=== PATIENT | male | born 1960 | race Caucasian/White ===

== ENCOUNTER 2016-07-20 20:08 | Inpatient (IN) | payer OTHER ==
[~2016-07-20] VITALS: Ht 182.9 cm; Wt 116.0 kg
[~2016-07-20 20:08] MED LIST: CYCL1PAK PO; ECOT81TA2 PO; LORA1TAB PO; MECL25CH PO; PRAV40 PO
[2016-07-20 20:16] VITALS: BP 136/90; PULSE 66; RESP 18; TEMP 98.1; O2SAT 96
--- NOTE | 2016-07-20 20:24 | PD ---
HPI Chief Complaint: Respiratory Symptoms Time Seen by Provider: 20:19 Travel History International Travel<30 days: No Contact w/Intl Traveler<30days: No Traveled to known affect area: No History of Present Illness HPI The patient's 55 years old. He arrives by the fire department service. He went to the fire Department due to cough and shortness of breath. It started about 2 hours prior to ER arrival. He had been using [id number] medications for URI symptoms until about 24 hours ago. Throughout the course of today he had a feeling quite well he developed a cough and shortness of breath. Fire department reports O2 sat in the low 90s which improved to high 90s w NC. Patient denies chest pain. He reports that on occasion he becomes diaphoretic and is not sure if times diaphoresis is related to his symptoms. PFSH Past Medical History Arthritis: Yes Asthma: Yes Blood Disorders: No Bipolar Disorder: Yes Anxiety: Yes Depression: No Heart Rhythm Problems: Yes (bradycardia) Cancer: No Cardiac Catheterization: No Cardiovascular Problems: Yes High Cholesterol: No Chemotherapy: No Chest Pain: Yes Congestive Heart Failure: No COPD: No Cerebrovascular Accident: Yes Diabetes: No Diminished Hearing: No Endocrine: No Gastrointestinal Disorders: Yes (REFLUX) GERD: Yes Genitourinary: No Headaches: Yes Hiatal Hernia: No Immune Disorder: No Insomnia: Yes Musculoskeletal: Yes (CHRONIC BODY ACHES) Neurologic: Yes (2 STROKES) Psychiatric: Yes (PTSD) Reproductive: No Respiratory: Yes Migraines: Yes Radiation Therapy: No Seizures: Yes (2013) Shingles: Yes Sleep Apnea: No Ulcer: No Past Surgical History Abdominal Surgery: No Cardiac Surgery: No Coronary Artery Bypass Graft: No Ear Surgery: No Endocrine Surgery: No Eye Surgery: No Genitourinary Surgery: No Gynecologic Surgery: No Neurologic Surgery: Yes Oral Surgery: No Thoracic Surgery: No Other Surgery: Yes (TUMOR IN HEAD, RIGHT SIDE) Social History Alcohol Use: No (quit 4 years ago) Tobacco Use: No (quit 4 years ago) Substance Use: No Allergies-Medications (Allergen,Severity, Reaction): Coded Allergies: Dairy (Verified Allergy, Severe, Diarrhea, 07/20/16) Ziprasidone (Verified Allergy, Severe, Swelling, 07/20/16) Reported Meds & Prescriptions Reported Meds & Active Scripts Active Reported Pravastatin 40 Mg Tab 40 Mg PO DAILY Omeprazole 10 Mg Cap 10 Mg PO DAILY Metformin (Metformin HCl) 500 Mg Tab 500 Mg PO BID With a meal Flexeril (Cyclobenzaprine HCl) 5 Mg Tab 5 Mg PO HS Lorazepam 1 Mg Tab 1 Mg PO TID PRN Review of Systems Except as stated in HPI: all other systems reviewed are Neg General / Constitutional: No: Fever, Chills Cardiovascular: Positive: Diaphoresis, No: Chest Pain or Discomfort Respiratory: Positive: Cough, Shortness of Breath Physical Exam Narrative GENERAL: 55-year-old male pleasant well-nourished well-developed speaks in short phrases SKIN: Focused skin assessment warm/dry. HEAD: Atraumatic. Normocephalic. EYES: Pupils equal and round. No scleral icterus. No injection or drainage. ENT: No nasal bleeding or discharge. Mucous membranes pink and moist. NECK: Trachea midline. No JVD. CARDIOVASCULAR: Minimal tachycardia with a rate of about 100. Regular. RESPIRATORY: Frequent cough. Wheezing present bilaterally. No accessory muscle use. GASTROINTESTINAL: Abdomen soft, non-tender, nondistended. Hepatic and splenic margins not palpable. MUSCULOSKELETAL: No obvious deformities. No clubbing. No cyanosis. No edema. NEUROLOGICAL: Awake and alert. No obvious cranial nerve deficits. Motor grossly within normal limits. Normal speech. PSYCHIATRIC: Appropriate mood and affect; insight and judgment normal. Data Data Last Documented VS Vital Signs Date Time Temp Pulse Resp B/P Pulse Ox O2 Delivery O2 Flow Rate FiO2 07/20/16 20:26 98 Nasal Cannula 2 07/20/16 20:26 18 07/20/16 20:20 67 07/20/16 20:16 98.1 136/90 Vital signs reviewed Orders Complete Blood Count With Diff (07/20/16 20:22) Basic Metabolic Panel (Bmp) (07/20/16 20:22) B-Type Natriuretic Peptide (07/20/16 20:22) Ckmb (Isoenzyme) Profile (07/20/16 20:22) Troponin I (07/20/16 20:22) Influenzae A/B Antigen (07/20/16 20:22) Blood Culture (07/20/16 20:22) Iv Access Insert/Monitor (07/20/16 20:22) Electrocardiogram (07/20/16 20:22) Ecg Monitoring (07/20/16 20:22) Oximetry (07/20/16 20:22) Oxygen Administration (07/20/16 20:22) Chest, Single Ap (07/20/16 20:22) Sodium Chloride 0.9% Flush (Ns Flush) (07/20/16 20:30) Methylprednisolone So Succ Inj (Solumedr (07/20/16 20:30) Albuterol-Ipratropium Neb (Duoneb Neb) (07/20/16 20:30) CKMB (07/20/16 20:18) CKMB% (07/20/16 20:18) Ct Pulmonary Angiogram (07/20/16 21:47) Aspirin (Aspirin) (07/20/16 22:00) Morphine Inj (Morphine Inj) (07/20/16 22:00) Nitroglycerin 2% Oint (Nitroglycerin 2% (07/20/16 22:00) Albuterol Hfa Inh (Proair Hfa Inh) (07/20/16 22:15) Iohexol 350 Inj (Omnipaque 350 Inj) (07/20/16 22:28) Heparin Infusion ARTIE.Q1H (07/20/16 22:49) Heparin Inj (Heparin Inj) (07/20/16 23:00) Heparin Inj (Heparin Inj) (07/21/16 05:00) Heparin Inj (Heparin Inj) (07/21/16 05:00) Heparin-D5w Inj (Heparin-D5w Inj) (07/20/16 23:00) Act Partial Throm Time (Ptt) (07/20/16 22:49) Prothrombin Time / Inr (Pt) (07/20/16 22:49) Cbc No Diff, Includes Plts (07/23/16 06:00) Act Partial Throm Time (Ptt) (07/21/16 05:49) Occult Blood (Hemoccult) Stool (07/20/16 22:49) Admit Order (Ed Use Only) (07/20/16 23:08) Labs Laboratory Tests Test 07/20/16 07/20/16 20:18 23:05 White Blood Count 5.4 TH/MM3 Red Blood Count 4.86 MIL/MM3 Hemoglobin 16.3 GM/DL Hematocrit 45.5 % Mean Corpuscular Volume 93.5 FL Mean Corpuscular Hemoglobin 33.4 PG Mean Corpuscular Hemoglobin 35.8 % Concent Red Cell Distribution Width 12.9 % Platelet Count 109 TH/MM3 Mean Platelet Volume 9.4 FL Neutrophils (%) (Auto) 50.3 % Lymphocytes (%) (Auto) 35.3 % Monocytes (%) (Auto) 8.3 % Eosinophils (%) (Auto) 5.2 % Basophils (%) (Auto) 0.9 % Neutrophils # (Auto) 2.7 TH/MM3 Lymphocytes # (Auto) 1.9 TH/MM3 Monocytes # (Auto) 0.4 TH/MM3 Eosinophils # (Auto) 0.3 TH/MM3 Basophils # (Auto) 0.0 TH/MM3 CBC Comment DIFF FINAL Differential Comment Sodium Level 139 MEQ/L Potassium Level 4.1 MEQ/L Chloride Level 103 MEQ/L Carbon Dioxide Level 25.7 MEQ/L Anion Gap 10 MEQ/L Blood Urea Nitrogen 14 MG/DL Creatinine 1.33 MG/DL Estimat Glomerular Filtration 56 ML/MIN Rate Random Glucose 107 MG/DL Calcium Level 8.9 MG/DL Total Creatine Kinase 359 U/L Creatine Kinase MB 3.2 NG/ML Creatine Kinase MB % 0.9 % Troponin I 0.20 NG/ML B-Type Natriuretic Peptide 65 PG/ML Prothrombin Time 12.6 SEC Prothromb Time International 1.1 RATIO Ratio Activated Partial 26.1 SEC Thromboplast Time MDM Medical Decision Making Medical Screen Exam Complete: Yes Emergency Medical Condition: Yes Medical Record Reviewed: Yes Differential Diagnosis Pneumonia, pulmonary embolism, acute coronary syndrome, anemia, electrolyte imbalance Narrative Course EKG shows a sinus rhythm with a rate of 66 no ischemic injury pattern present CBC & BMP Diagram 07/20/16 20:18 Troponin 0.2 BNP 65 Last [address] Angiography 07/20/162146 Signed Impressions: Service Date/Time: Wednesday, July 20, 2016 22:17 - CONCLUSION: Bilateral filling defects in the upper lobe segmental arteries bilaterally. No central vessel embolism or lower lobe filling defects. Tony Tripp MD Chest X-Ray 07/20/162021 Signed Impressions: Service Date/Time: Wednesday, July 20, 2016 21:01 - CONCLUSION: The lungs are clear. Tony Tripp MD The patient has bilateral PEs. He is hemodynamically stable. Heparin started. Case discussed with Dr. More. Patient will go to the CICU. Critical Care Narrative Aggregate critical care time was 35 minutes. Time to perform other separately billable procedures was not included in the critical care time. My time did not include minutes spent treating any other patients simultaneously or on activities that did not directly contribute to the patient's treatment. The services I provided to this patient were to treat and/or prevent clinically significant deterioration that could result in: Cardiopulmonary arrest, hypoxia I provided critical care services requiring my management, as noted below: Chart data review, documentation time, medication orders and management, vital sign assessments/reviewing monitor data, ordering and reviewing lab tests, ordering and interpreting/reviewing x-rays and diagnostic studies, care of the patient and discussion of the patient with the admitting physicians. Diagnosis Primary Impression: Pulmonary emboli Qualified Code: I26.99 - Other acute pulmonary embolism without acute cor pulmonale Admitting Information Admitting Physician Requests: Noah Erwin MD Jul 20, 2016 20:24
[2016-07-20] MEDS ORDERED: OMEP10CA PO (20:25)
[2016-07-20] MEDS ORDERED: CYCL5TAB PO (20:25)
[2016-07-20] MEDS ORDERED: PRAV40TA2 PO (20:25)
[2016-07-20] MEDS ORDERED: LORA1TAB12 PO (20:25)
[2016-07-20] MEDS ORDERED: METF500T PO (20:25)
[2016-07-20 20:26] VITALS: RESP 18; O2SAT 98
[2016-07-20] MEDS ORDERED: methylPREDNISolone SOD SUCC 125 MG/2 ML VIAL IVP ONE (20:30)
[2016-07-20] MEDS ORDERED: SODIUM CHLORIDE 0.9% FLUSH 10 ML FLUSH IVF PRN (20:30)
[2016-07-20] MEDS: RESP: ALBUTEROL 2.5 MG/IPRATROPIUM 0.5 MG NEB (SCH) INH (20:34)
[2016-07-20 20:52] LABS: AUTOMATED NEUTROPHIL # 2.7 TH/MM3 (1.8-7.7); BASOPHIL % 0.9 % (0.0-2.0); EOSINOPHIL # 0.3 TH/MM3 (0-0.4); EOSINOPHIL % 5.2 % (0.0-4.0); HEMATOCRIT 45.5 % (39.0-51.0); HEMO FLAGS DIFF FINAL; LYMPH % 35.3 % (9.0-44.0); LYMPHOCYTE # 1.9 TH/MM3 (1.0-4.8); MEAN CELL VOLUME 93.5 FL (80.0-100.0); MEAN CORPUSCULAR HEMOGLOBIN 33.4 PG (27.0-34.0); MEAN CORPUSCULAR HGB CONC 35.8 % (32.0-36.0); MONO % 8.3 % (0.0-8.0); NEUT % 50.3 % (16.0-70.0); PLATELET COUNT 109 TH/MM3 (150-450); RED BLOOD COUNT 4.86 MIL/MM3 (4.50-5.90); RED CELL DISTRIBUTION WIDTH 12.9 % (11.6-17.2); WHITE BLOOD COUNT 5.4 TH/MM3 (4.0-11.0)
--- NOTE | 2016-07-20 21:14 | RADRPT ---
EXAM DATE/TIME: 07/20/2016 21:01 [facility] COMPARISON: CHEST SINGLE AP, June 22, 2012, 13:31. CHEST SINGLE AP, October 05, 2014, 13:28. INDICATIONS : Short of breath. MEDICAL HISTORY : None. SURGICAL HISTORY : None. ENCOUNTER: Initial ACUITY: 1 day PAIN SCORE: 6/10 LOCATION: Bilateral chest FINDINGS: A single view of the chest demonstrates the lungs to be symmetrically aerated without evidence of mas s, infiltrate or effusion. Stable 5 mm calcified granuloma upper lateral right lung and calcified ri ght hilar lymph node, unchanged from 2013. The cardiomediastinal contours are unremarkable. Osseous structures are intact. CONCLUSION: The lungs are clear. Tony Tripp MD on July 20, 2016 at 21:12 Board Certified Radiologist. This report was verified electronically.
[2016-07-20 21:15] LABS: BICARBONATE 25.7 MEQ/L (21.0-32.0)
[2016-07-20 21:17] LABS: POTASSIUM 4.1 MEQ/L (3.5-5.1)
[2016-07-20 21:30] LABS: CKMB 3.2 NG/ML (0.5-3.6)
[2016-07-20] MEDS ORDERED: NITROGLYCERIN 2% OINT 1 GM PACKET TOP ONE (22:00)
[2016-07-20] MEDS ORDERED: ASPIRIN 325 MG TAB PO ONE (22:00)
[2016-07-20] MEDS ORDERED: MORPHINE SULFATE 4 MG/ML INJ IV PUSH ONE (22:00)
[2016-07-20] MEDS ORDERED: ALBUTEROL SULFATE 90 MCG/ACT HFA 8 GM INHALER INH ONE (22:15)
[2016-07-20] MEDS ORDERED: IOHEXOL 350 MG/ML 10 ML VIAL (for RAD DIAG) IV ONE (22:28)
--- NOTE | 2016-07-20 22:46 | RADRPT ---
EXAM DATE/TIME: 07/20/2016 22:17 [facility] COMPARISON: No previous studies available for comparison. INDICATIONS : Shortness of breath with cough. IV CONTRAST: 80 cc Omnipaque 350 (iohexol) IV RADIATION DOSE: 25.19 CTDIvol (mGy) MEDICAL HISTORY : Diabetes mellitus type 2. Asthma. SURGICAL HISTORY : Cardiac catherization. ENCOUNTER: Initial ACUITY: 1 day PAIN SCALE: 0/10 LOCATION: chest TECHNIQUE: Volumetric scanning of the chest was performed using a pulmonary embolism protocol MIP images were re constructed. Using automated exposure control and adjustment of the mA and/or kV according to patien t size, radiation dose was kept as low as reasonably achievable to obtain optimal diagnostic quality images. FINDINGS: PULMONARY ARTERIES: There are small filling defects in segmental arteries to the right upper lobe (one artery) and to the left upper lobe (2 arteries). No filling defects seen in the main, left, or right pulmonary artery no filling defects seen in the lower lobe or right middle lobe vessels. LUNGS: There is no consolidation or pneumothorax . No concerning pulmonary nodule is visualized. PLEURAE: There is no pleural thickening or pleural effusion. MEDIASTINUM: There is good visualization of the great vessels of the middle mediastinum. No evidence of mediastin al or hilar adenopathy/mass. CONCLUSION: Bilateral filling defects in the upper lobe segmental arteries bilaterally. No central vessel emboli sm or lower lobe filling defects. Tony Tripp MD on July 20, 2016 at 22:41 Board Certified Radiologist. This report was verified electronically.
[2016-07-20 23:00] VITALS: BP 132/81; PULSE 76; RESP 18; O2SAT 97
[2016-07-20] MEDS ORDERED: HEPARIN SODIUM - IV 10,000 UNITS/10 ML VIAL IV ONE (23:00)
[2016-07-20] MEDS ORDERED: HEPARIN-D5W INJ 250 ML IV SCH (23:00)
[2016-07-20 23:24] VITALS: BP 132/81; PULSE 87; RESP 18; O2SAT 96
[2016-07-20] MEDS ORDERED: LORazepam 1 MG TAB PO ONE (23:30)
[2016-07-20 23:35] LABS: APTT (PATIENT) 26.1 SEC (24.3-30.1); INTERNATIONAL NORMALIZED RATIO 1.1 RATIO; PROTHROMBIN TIME - PATIENT 12.6 SEC (9.8-11.6)
[2016-07-20] MEDS ORDERED: SODIUM CHLORIDE 0.9% FLUSH 10 ML FLUSH IV FLUSH PRN (23:45)
[2016-07-21] VITALS (16 sets, daily range): BP systolic 123–153; BP diastolic 68–94; PULSE 89–98; RESP 16–20; TEMP 98–98.8; O2SAT 93–98
[2016-07-21] MEDS ORDERED: GLUCAGON 1 MG/ML VIAL OTHER PRN
[2016-07-21] MEDS ORDERED: DEXTROSE 50% IN WATER 50 ML VIAL(D50) IV PUSH PRN
--- NOTE | 2016-07-21 | HHI.HP ---
[facility] Admission Diagnosis Bilateral PE Diagnoses: Chief Complaint: Shortness of breath Travel History International Travel<30 Days: No Contact w/Intl Traveler <30 Da: No Traveled to Known Affected Are: No History of Present Illness 55-year-old male with a past medical history significant for hypertension and type 2 diabetes mellitus presents to the emergency department today after becoming short of breath at 6:30 PM. The patient states that he was in his usual state of health, recovering from a cold, when he developed a cough that would not go away. He states that he was having difficulty breathing and went to a nearby fire station to be evaluated. Fire department reported oxygen saturation in the low 90s which improved with nasal cannula. In the emergency department, the patient was found to have bilateral pulmonary embolisms. He also had an EKG that was within normal limits and a troponin of 0.20. He denies any associated symptoms. Review of Systems Denies fever or chills Denies blurry vision, otorrhea, rhinorrhea Denies sore throat, positive cough No chest pain, palpitations, endorses shortness of breath Chronic abdominal pain Denies constipation/diarrhea/nausea/vomiting Denies muscle pain/weakness No rashes Past Family Social History Past Medical History Hypertension Hyperlipidemia Type 2 diabetes mellitus Anxiety Past Surgical History Cardiac catheterization on 02/13 - no stent placement Reported Medications Reported Meds & Active Scripts Active Reported Pravastatin 40 Mg Tab 40 Mg PO DAILY Omeprazole 10 Mg Cap 10 Mg PO DAILY Metformin (Metformin HCl) 500 Mg Tab 500 Mg PO BID With a meal Flexeril (Cyclobenzaprine HCl) 5 Mg Tab 5 Mg PO HS Lorazepam 1 Mg Tab 1 Mg PO TID PRN Allergies: Coded Allergies: Dairy (Verified Allergy, Severe, Diarrhea, 07/20/16) Ziprasidone (Verified Allergy, Severe, Swelling, 07/20/16) Family History Mom with Alzheimer's disease and a CVA, now . Dad of an NE at age 61. 2 brothers with coronary artery disease. Social History 20 pack year history of smoking, quit 5 years ago. Denies alcohol/illicit drugs. Physical Exam Vital Signs Vital Signs Date Time Temp Pulse Resp B/P Pulse Ox O2 Delivery O2 Flow Rate FiO2 07/20/16 23:24 87 18 132/81 96 Nasal Cannula 2 07/20/16 20:26 98 Nasal Cannula 2 07/20/16 20:26 18 98 Nasal Cannula 2 07/20/16 20:20 67 18 98 Nasal Cannula 2 07/20/16 20:16 98.1 66 18 136/90 96 Physical Exam GENERAL: This is a well-nourished, well-developed patient, in no apparent distress. SKIN: No rashes, ecchymoses or lesions. Cool and dry. HEAD: Atraumatic. Normocephalic. No temporal or scalp tenderness. EYES: Pupils equal round and reactive. Extraocular motions intact. No scleral icterus. No injection or drainage. ENT: Nose without bleeding, purulent drainage or septal hematoma. Throat without erythema, tonsillar hypertrophy or exudate. Uvula midline. Airway patent. NECK: Trachea midline. No JVD or lymphadenopathy. Supple, nontender, no meningeal signs. CARDIOVASCULAR: Regular rate and rhythm without murmurs, gallops, or rubs. RESPIRATORY: Clear to auscultation. Breath sounds equal bilaterally. No wheezes , rales, or rhonchi. GASTROINTESTINAL: Abdomen soft, non-tender, nondistended. No hepato-splenomegaly , or palpable masses. No guarding. MUSCULOSKELETAL: Extremities without clubbing, cyanosis, or edema. No joint tenderness, effusion, or edema noted. No calf tenderness. Negative Homans sign bilaterally. NEUROLOGICAL: Awake and alert. Cranial nerves II through XII intact. Motor and sensory grossly within normal limits. Five out of 5 muscle strength in all muscle groups. Normal speech. Laboratory Laboratory Tests Test 07/20/16 07/20/16 20:18 23:05 White Blood Count 5.4 Red Blood Count 4.86 Hemoglobin 16.3 Hematocrit 45.5 Mean Corpuscular Volume 93.5 Mean Corpuscular Hemoglobin 33.4 Mean Corpuscular Hemoglobin 35.8 Concent Red Cell Distribution Width 12.9 Platelet Count 109 Mean Platelet Volume 9.4 Neutrophils (%) (Auto) 50.3 Lymphocytes (%) (Auto) 35.3 Monocytes (%) (Auto) 8.3 Eosinophils (%) (Auto) 5.2 Basophils (%) (Auto) 0.9 Neutrophils # (Auto) 2.7 Lymphocytes # (Auto) 1.9 Monocytes # (Auto) 0.4 Eosinophils # (Auto) 0.3 Basophils # (Auto) 0.0 CBC Comment DIFF FINAL Differential Comment Sodium Level 139 Potassium Level 4.1 Chloride Level 103 Carbon Dioxide Level 25.7 Anion Gap 10 Blood Urea Nitrogen 14 Creatinine 1.33 Estimat Glomerular Filtration 56 Rate Random Glucose 107 Calcium Level 8.9 Total Creatine Kinase 359 Creatine Kinase MB 3.2 Creatine Kinase MB % 0.9 Troponin I 0.20 B-Type Natriuretic Peptide 65 Prothrombin Time 12.6 Prothromb Time International 1.1 Ratio Activated Partial 26.1 Thromboplast Time Date/Time Procedure Status Source Growth 07/20/16 20:30 Aerobic Blood Culture Received Blood Peripheral Pending 07/20/16 20:30 Anaerobic Blood Culture Received Blood Peripheral Pending 07/20/16 20:29 Influenza Types A,B Antigen (LAUREN) - Final Complete Nasal Aspirate NEGATIVE FOR FLU A AND B ANTIGEN.... Result Diagram: 07/20/16201707/20/162017 Imaging Last Impressions CT Angiography 07/20/162146 Signed Impressions: Service Date/Time: Wednesday, July 20, 2016 22:17 - CONCLUSION: Bilateral filling defects in the upper lobe segmental arteries bilaterally. No central vessel embolism or lower lobe filling defects. Tony Tripp MD Chest X-Ray 07/20/162021 Signed Impressions: Service Date/Time: Wednesday, July 20, 2016 21:01 - CONCLUSION: The lungs are clear. Tony Tripp MD Assessment and Plan Problem List: (1) Diabetes ICD Code: E11.9 Status: Chronic (2) HTN (hypertension) ICD Code: I10 Status: Chronic (3) HLD (hyperlipidemia) ICD Code: E78.5 Status: Chronic (4) Pulmonary emboli ICD Code: I26.99 Status: Acute (5) Anxiety ICD Code: F41.1 Status: Chronic Assessment and Plan 55-year-old male presents to the emergency department with bilateral pulmonary emboli after being short of breath. 1. Pulmonary emboli CTA showed bilateral filling deficits in the upper lobe segmental arteries bilaterally. Patient started on heparin ggt in the emergency department. Will transition to Xarelto. 2. Elevated troponin Likely secondary to pulmonary emboli Repeat troponin, patient with previous troponin of 0.17 in September 2014 Patient with previous heart catheterization on 10/12, no stent placement and strong family history of CAD 3. Hypertension Continue home medications 4. Type 2 diabetes mellitus Holding home metformin, low-dose sliding scale insulin 5. Hyperlipidemia Continue home statin 6. FEN Hep-Lock IV Heart healthy diet Anticoagulation as above Physician Certification 2 Midnight Certification Type: Admission for Inpatient Services Order for Inpatient Services The services are ordered in accordance with Medicare regulations or non- Medicare payer requirements, as applicable. In the case of services not specified as inpatient-only, they are appropriately provided as inpatient services in accordance with the 2-midnight benchmark. Estimated LOS (days): 2 2 days is the estimated time the patient will need to remain in the hospital, assuming treatment plan goals are met and no additional complications. Post-Hospital Plan: Home Renetta More MD R3 Jul 21, 2016 00:00
--- NOTE | 2016-07-21 02:02 | RADRPT ---
EXAM DATE/TIME: 07/21/2016 00:47 [facility] COMPARISON: No previous studies available for comparison. INDICATIONS : Pulmonary embolism. MEDICAL HISTORY : Gastroesophageal reflux disease. CVA. Seizures. AL. Syncope. Dyspnea. PTSD. SURGICAL HISTORY : Right sided head surgery. ENCOUNTER: Initial ACUITY: 2 day PAIN SCORE: 1/10 LOCATION: Bilateral legs. TECHNIQUE: Venous ultrasound of the left and right leg was performed from the inguinal ligament to the proximal calf. Real-time, color Doppler and spectral tracing, compression and augmentation techniques were us ed. FINDINGS: RIGHT LEG: There is normal compressibility of the deep venous system from the inguinal region to the proximal ca lf. No echogenic clot is seen in the lumen of the common femoral, femoral, popliteal, and posterior tibial veins. There is a normal response of the venous system to proximal and distal augmentation an d respiration. LEFT LEG: There is normal compressibility of the deep venous system from the inguinal region to the proximal ca lf. No echogenic clot is seen in the lumen of the common femoral, femoral, popliteal, and posterior tibial veins. There is a normal response of the venous system to proximal and distal augmentation an d respiration. CONCLUSION: Normal examination. Tony Williamson Jr., MD on July 21, 2016 at 2:00 Board Certified Radiologist. This report was verified electronically.
[2016-07-21] MEDS ORDERED: ALBUTEROL SULFATE 90 MCG/ACT HFA 18 GM INHALER INH ONE (04:45)
[2016-07-21] MEDS ORDERED: HEPARIN SODIUM - IV 10,000 UNITS/10 ML VIAL IV PRN ×4 (05:00→18:30)
[2016-07-21 05:34] LABS: APTT (PATIENT) 140.5 SEC (24.3-30.1)
[2016-07-21] MEDS: INSULIN ASPART SUPPLEMENTAL SCALE SQ SCH ×4 (07:51→21:29)
--- NOTE | 2016-07-21 08:55 | HHI.PR ---
Subjective Remarks f/u for respiratory distress due to PE patient stated breathing has improved. he stated if he does not move he does not feel SOB. + cough. No other complaints. Objective Vitals Vital Signs Date Time Temp Pulse Resp B/P Pulse Ox O2 Delivery O2 Flow Rate FiO2 07/21/16 07:42 92 18 123/78 94 Room Air 07/21/16 04:56 90 18 127/76 96 Nasal Cannula 2 07/21/16 03:35 89 18 138/83 98 Nasal Cannula 2 07/21/16 01:45 96 18 150/90 97 Nasal Cannula 2 07/21/16 00:09 97 Nasal Cannula 2.00 07/21/16 00:00 90 16 134/94 96 Nasal Cannula 07/20/16 23:24 87 18 132/81 96 Nasal Cannula 2 07/20/16 23:00 76 18 132/81 97 Nasal Cannula 2 07/20/16 20:26 98 Nasal Cannula 2 07/20/16 20:26 18 98 Nasal Cannula 2 07/20/16 20:20 67 18 98 Nasal Cannula 2 07/20/16 20:16 98.1 66 18 136/90 96 I/O 07/20/16 07/20/16 07/20/16 07/21/16 07/21/16 07/21/16 07:00 15:00 23:00 07:00 15:00 23:00 Output Total 1000 ml Balance -1000 ml Output Urine Total 1000 ml # Voids 3 Result Diagram: 07/20/16201707/20/162017 Objective Remarks GENERAL: in NAD CARDIOVASCULAR: Regular rate and rhythm without murmurs, gallops, or rubs. RESPIRATORY: Breath sounds equal bilaterally. No accessory muscle use. GASTROINTESTINAL: Abdomen soft, non-tender, nondistended. MUSCULOSKELETAL: No cyanosis, or edema. BACK: Nontender without obvious deformity. No CVA tenderness. Medications and IVs Current Medications Sodium Chloride (NS Flush) 2 ml UNSCH PRN IVF FLUSH AFTER USING IV ACCESS; Start 07/20/16 at 20:30; Stop 07/20/16 at 23:56; Status DC Methylprednisolone Sodium Succinate (SoluMEDROL INJ) 125 mg ONCE ONCE IVP Last administered on 07/20/16t 20:48; Start 07/20/16 at 20:30; Stop 07/20/16 at 20:31; Status DC Albuterol/ Ipratropium (Duoneb Neb) 1 ampule Q15M INH Last administered on 07/20 20:34; Start 07/20/16 at 20:30; Stop 07/20/16 at 21:01; Status DC Aspirin (Aspirin) 325 mg ONCE ONCE PO Last administered on 07/20/16 22:19; Start 07/20/16 at 22:00; Stop 07/20/16 at 22:01; Status DC Morphine Sulfate (Morphine Inj) 2 mg ONCE ONCE IV PUSH Last administered on 22:19; Start 07/20/16 at 22:00; Stop 07/20/16 at 22:01; Status DC Nitroglycerin (Nitroglycerin 2% Oint) 1 inch ONCE ONCE TOP Last administered on 07/20/16 22:19; Start 07/20/16 at 22:00; Stop 07/20/16 at 22:01; Status DC Albuterol Sulfate (Proair Hfa Inh) 2 puff ONCE ONCE INH ; Start 07/20/16 at 22: 15; Stop 07/20/16 at 22:16; Status Cancel Iohexol (Omnipaque 350 Inj) 80 ml STK-MED ONCE IV Last administered on 22:28; Start 07/20/16 at 22:28; Stop 07/20/16 at 22:29; Status DC Heparin Sodium (Porcine) (Heparin Inj) 9,000 units ONCE ONCE IV Last administered on 07/20/16 23:20; Start 07/20/16 at 23:00; Stop 07/20/16 at 23:01 ; Status DC Heparin Sodium (Porcine) (Heparin Inj) 5,000 units UNSCH PRN IV APTT LESS THAN 25; Start 07/21/16 at 05:00; Stop 07/21/16 at 08:59 Heparin Sodium (Porcine) 2500 units 2,500 units UNSCH PRN IV APTT 25 TO 39; Start 07/21/16 at 05:00; Stop 07/21/16 at 08:59 Heparin Sodium/ Dextrose (Heparin-D5W Inj) 250 ml @ 0 mls/hr TITRATE IV Last administered on 07/20/16 23:21; Start 07/20/16 at 23:00; Stop 07/21/16 at 08:59 Lorazepam (Ativan) 1 mg ONCE ONCE PO Last administered on 07/20/16 23:43; Start 07/20/16 at 23:30; Stop 07/20/16 at 23:31; Status DC Lorazepam (Ativan) 1 mg TID PRN PO ANXIETY; Start 07/20/16 at 23:45 Pravastatin Sodium (Pravachol) 40 mg DAILY PO ; Start 07/21/16 at 09:00 Pantoprazole Sodium (Protonix) 20 mg DAILY PO ; Start 07/21/16 at 09:00 Sodium Chloride (NS Flush) 2 ml UNSCH PRN IV FLUSH FLUSH AFTER USING IV ACCESS ; Start 07/20/16 at 23:45 Sodium Chloride (NS Flush) 2 ml BID IV FLUSH ; Start 07/21/16 at 09:00 Rivaroxaban (Xarelto) 15 mg BID PO ; Start 07/21/16 at 09:00 Insulin Aspart (NovoLOG SUPPLEMENTAL SCALE) 1 ACHS SLIDING SCALE SQ Last administered on 07/21/16 07:51; Start 07/21/16 at 07:00 Dextrose (D50w (Vial) Inj) 25 ml UNSCH PRN IV PUSH HYPOGLYCEMIA-SEE COMMENTS; Start 07/21/16 at 00:00 Glucagon (Glucagon Inj) 1 mg UNSCH PRN OTHER HYPOGLYCEMIA-SEE COMMENTS; Start 07/21/16 at 00:00 Albuterol Sulfate (Ventolin Hfa Inh) 2 puff ONCE ONCE INH Last administered on 07/21/16 04:39; Start 07/21/16 at 04:45; Stop 07/21/16 at 04:46; Status DC A/P Problem List: (1) Diabetes ICD Code: E11.9 Status: Chronic (2) HTN (hypertension) ICD Code: I10 Status: Chronic (3) HLD (hyperlipidemia) ICD Code: E78.5 Status: Chronic (4) Pulmonary emboli ICD Code: I26.99 Status: Acute (5) Anxiety ICD Code: F41.1 Status: Chronic Assessment and Plan 55-year-old male presents to the emergency department with bilateral pulmonary emboli after being short of breath. Acute respiratory failure -due to PE -supplement with Oxygen. -see treatment as below. Pulmonary emboli CTA showed bilateral filling deficits in the upper lobe segmental arteries bilaterally. Patient started on heparin ggt in the emergency department. -most likely provoked due to last hospitalization with decreased mobilization. -continue with heparin gtt since he continues to be hypoxic and consider switching to PO tomorrow if symptoms improved. Elevated troponin Likely secondary to pulmonary emboli Repeat troponin, patient with previous troponin of 0.17 in September 2014 Patient with previous heart catheterization on 10/12, no stent placement and strong family history of CAD -stable. Hypertension Continue home medications Type 2 diabetes mellitus Holding home metformin, low-dose sliding scale insulin Hyperlipidemia Continue home statin DVT prophylaxis -on heparin gtt Discharge Planning Patient continues to require oxygen. Will try to transition to oral tomorrow if respiratory status improves. Problem Qualifiers (1) Pulmonary emboli: Qualified Code: I26.99 - Other acute pulmonary embolism without acute cor pulmonale Natali Kennedy MD Jul 21, 2016 08:55
[2016-07-21] MEDS ORDERED: RIVAROXABAN 15 MG TAB PO SCH (09:00)
[2016-07-21] MEDS: PANTOPRAZOLE SOD 20 MG DELAYED RELEASE TAB PO SCH (09:24)
[2016-07-21] MEDS: PRAVASTATIN SOD 40 MG TAB PO SCH (09:24)
[2016-07-21] MEDS: LORazepam 1 MG TAB PO PRN ×2 (09:24→17:12)
[2016-07-21] MEDS: SODIUM CHLORIDE 0.9% FLUSH 10 ML FLUSH IV FLUSH SCH ×2 (09:24→21:00)
--- NOTE | 2016-07-21 13:32 | EKG ---
Date Performed: 07/20/2016 Time Performed: 20:24:19 PTAGE: 55 years EKG: Sinus rhythm BORDERLINE LEFT AXIS DEVIATION Compared to prior tracing no significant change BORDERLINE ECG PREVIOUS TRACING : 10/05/2014 13.10 DOCTOR: Cain Aguero Interpretating Date/Time 07/21/2016 13:30:03
[2016-07-21] MEDS ORDERED: PILL SPLITTER OTHER PRN (17:30)
[2016-07-21] MEDS: HEPARIN-D5W INJ 250 ML IV SCH (18:30)
[2016-07-21] MEDS ORDERED: CYCLOBENZAPRINE HCL 10 MG TAB PO SCH (21:00)
[2016-07-22] VITALS (11 sets, daily range): BP systolic 78–142; BP diastolic 68–78; PULSE 66–98; RESP 16–17; TEMP 97.8–98.2; O2SAT 95–97
[2016-07-22] MEDS: LORazepam 1 MG TAB PO PRN ×2 (00:21→09:44)
[2016-07-22 00:37] LABS: APTT (PATIENT) 61.1 SEC (24.3-30.1)
[2016-07-22] MEDS: INSULIN ASPART SUPPLEMENTAL SCALE SQ SCH ×2 (05:50→11:00)
[2016-07-22 07:07] LABS: APTT (PATIENT) 77.2 SEC (24.3-30.1)
[2016-07-22] MEDS: PANTOPRAZOLE SOD 20 MG DELAYED RELEASE TAB PO SCH (08:41)
[2016-07-22] MEDS: PRAVASTATIN SOD 40 MG TAB PO SCH (08:41)
[2016-07-22] MEDS: SODIUM CHLORIDE 0.9% FLUSH 10 ML FLUSH IV FLUSH SCH (08:44)
[2016-07-22] MEDS: HEPARIN-D5W INJ 250 ML IV SCH (08:44)
[2016-07-22] MEDS ORDERED: XARE15TA PO ×2 (11:39→11:47)
[2016-07-22] MEDS ORDERED: XARE20TA PO ×2 (11:39→11:47)
--- NOTE | 2016-07-22 11:48 | HHI.DCPOC ---
Discharge Care Plan Diagnosis: (1) Pulmonary emboli Goals to Promote Your Health * To prevent worsening of your condition and complications * To maintain your health at the optimal level Directions to Meet Your Goals Take your medications as prescribed Follow your dietary instruction Follow activity as directed Keep your appointments as scheduled Take your immunizations and boosters as scheduled If your symptoms worsen call your PCP, if no PCP go to Urgent Care Center or Emergency Room Smoking is Dangerous to Your Health. Avoid second hand smoke Call the 24-hour hour crisis hotline for domestic abuse at Natlai Kennedy MD Jul 22, 2016 11:48
--- NOTE | 2016-07-22 11:48 | HHI.DS ---
Discharge Summary Admission Date Jul 20, 2016 at 23:10 Discharge Date: Jul 22, 2016 Admitting Diagnosis Bilateral PE (1) Pulmonary emboli ICD Code: I26.99 Diagnosis: Principal (2) Diabetes ICD Code: E11.9 Diagnosis: Secondary (3) HTN (hypertension) ICD Code: I10 Diagnosis: Secondary (4) HLD (hyperlipidemia) ICD Code: E78.5 Diagnosis: Secondary (5) Anxiety ICD Code: F41.1 Diagnosis: Secondary Procedures none Brief History - From Admission 55-year-old male with a past medical history significant for hypertension and type 2 diabetes mellitus presents to the emergency department today after becoming short of breath at 6:30 PM. The patient states that he was in his usual state of health, recovering from a cold, when he developed a cough that would not go away. He states that he was having difficulty breathing and went to a nearby fire station to be evaluated. Fire department reported oxygen saturation in the low 90s which improved with nasal cannula. In the emergency department, the patient was found to have bilateral pulmonary embolisms. He also had an EKG that was within normal limits and a troponin of 0.20. He denies any associated symptoms. CBC/BMP: 07/20/16201707/20/162017 Significant Findings Laboratory Tests Test 07/20/16 07/20/16 07/21/16 07/21/16 20:18 23:05 02:34 04:50 Platelet Count 109 TH/MM3 (150-450) Monocytes (%) (Auto) 8.3 % (0.0-8.0) Eosinophils (%) (Auto) 5.2 % (0.0-4.0) Creatinine 1.33 MG/DL (0.60-1.30) Estimat Glomerular Filtration 56 ML/MIN (>89) Rate Random Glucose 107 MG/DL (74-106) Total Creatine Kinase 359 U/L (39-308) Troponin I 0.20 NG/ML 0.21 NG/ML (0.02-0.05) (0.02-0.05) Prothrombin Time 12.6 SEC (9.8-11.6) Activated Partial 140.5 SEC Thromboplast Time (24.3-30.1) Test 07/21/16 07/21/16 07/22/16 07/22/16 07:40 18:20 00:12 05:51 Activated Partial 39.0 SEC 62.0 SEC 61.1 SEC 77.2 SEC Thromboplast Time (24.3-30.1) (24.3-30.1) (24.3-30.1) (24.3-30.1) Imaging Last Impressions Lower Extremity Ultrasound 07/21/16 0000 Signed Impressions: Service Date/Time: Thursday, July 21, 2016 00:47 - CONCLUSION: Normal examination. Tony Williamson Jr., MD CT Angiography 07/20/162146 Signed Impressions: Service Date/Time: Wednesday, July 20, 2016 22:17 - CONCLUSION: Bilateral filling defects in the upper lobe segmental arteries bilaterally. No central vessel embolism or lower lobe filling defects. Tony Tripp MD Chest X-Ray 07/20/162021 Signed Impressions: Service Date/Time: Wednesday, July 20, 2016 21:01 - CONCLUSION: The lungs are clear. Tony Tripp MD PE at Discharge GENERAL: in NAD CARDIOVASCULAR: Regular rate and rhythm without murmurs, gallops, or rubs. RESPIRATORY: Breath sounds equal bilaterally. No accessory muscle use. GASTROINTESTINAL: Abdomen soft, non-tender, nondistended. MUSCULOSKELETAL: No cyanosis, or edema. BACK: Nontender without obvious deformity. No CVA tenderness. Pt update on day of discharge f/u for PE patient stated he feels a lot better. He stated he just has a mild cough and sometimes pain with the cough but otherwise doing well. Denied any SOB, palpitations or chest pain. patient stated can get his medication today if he goes to [place] before 4 pm. Hospital Course 55-year-old male presents to the emergency department with bilateral pulmonary emboli after being short of breath. Acute respiratory failure -due to PE found on CT scan. -supplement with Oxygen and was able to wean off. -see treatment as below. Pulmonary emboli CTA showed bilateral filling deficits in the upper lobe segmental arteries bilaterally. Patient started on heparin ggt in the emergency department and since today he had drastic improvement and was weaned off of oxygen quickly d./ c heparin gtt and started on xarelto. -most likely provoked due to last hospitalization with decreased mobilization. Elevated troponin Likely secondary to pulmonary emboli Repeat troponin, patient with previous troponin of 0.17 in September 2014 Patient with previous heart catheterization on 10/12, no stent placement and strong family history of CAD -stable. Hypertension Continue home medications Type 2 diabetes mellitus -restart. Hyperlipidemia Continue home statin Pt Condition on Discharge: Good Discharge Disposition: Discharge Home Discharge Time: <= 30 minutes Discharge Instructions DIET: Follow Instructions for: Heart Healthy Diet Activities you can perform: Regular-No Restrictions Follow up Referrals: PCP Follow-up - 1 Week New Medications: Rivaroxaban (Xarelto) 15 Mg Tab 15 MG PO Q12HR take 15 mg twice a day or 21 days then transition to 20 mg once a day Blood Clot Prevention Days 21 Ref 0 TAB Rivaroxaban (Xarelto) 20 Mg Tab 20 MG PO DAILY start 20 mg once a day after completing the 15 mg tablet once a day. Blood Clot Prevention #7 Ref 0 TAB Continued Medications: Cyclobenzaprine (Flexeril) 5 Mg Tab 5 MG PO HS Muscle Spasm #90 Ref 0 TAB Lorazepam (Lorazepam) 1 Mg Tab 1 MG PO TID PRN ANXIETY Ref 0 TAB Metformin (Metformin) 500 Mg Tab 500 MG PO BID With a meal Blood Sugar Management #30 Ref 0 TAB Omeprazole (Omeprazole) 10 Mg Cap 10 MG PO DAILY #30 Ref 0 CAP Pravastatin (Pravastatin) 40 Mg Tab 40 MG PO DAILY Cholesterol Management #30 Ref 0 TAB Natali Kennedy MD Jul 22, 2016 11:48
[2016-07-22] MEDS ORDERED: RIVAROXABAN 15 MG TAB PO SCH (12:00)
== END 2016-07-22 13:03 | disposition home or self-care (01) | DRG 175 ==
LOC: NEPC 20:08 → NEDA 23:10 → NEDH 07-21 06:54 → HCIS 07-21 14:35
PROVIDERS: ADMIT Family Medicine; ATTEND Family Medicine
DX: I26.99 Other pulmonary embolism without acute cor pulmonale (principal); J96.01 Acute respiratory failure with hypoxia; B02.9 Zoster without complications; J45.909 Unspecified asthma, uncomplicated; F41.1 Generalized anxiety disorder; G43.909 Migraine, unspecified, not intractable, without status migrainosus; K21.9 Gastro-esophageal reflux disease without esophagitis; G47.00 Insomnia, unspecified; E11.9 Type 2 diabetes mellitus without complications; E78.5 Hyperlipidemia, unspecified; I10 Essential (primary) hypertension; R74.8 Abnormal levels of other serum enzymes; Z86.73 Personal history of transient ischemic attack (TIA), and cerebral infarction without residual deficits; Z87.891 Personal history of nicotine dependence
CPT/HCPCS: 71010; 71275; 80048; 82550; 82552; 82948; 83880; 84484; 85025; 85610; 85730; 87040; 87804; 93005; 93970; 94640; 94664; 96374; 96375; J1644; J1815; J2270; J2930; Q9967

== ENCOUNTER 2016-09-01 13:17 | Emergency (ER) | payer OTHER ==
[~2016-09-01] VITALS: Ht 185.4 cm; Wt 113.6 kg
[~2016-09-01 13:17] MED LIST changes: -CYCL1PAK PO; +CYCL5TAB PO; -ECOT81TA2 PO; -LORA1TAB PO; +LORA1TAB12 PO; -MECL25CH PO; +METF500T PO; +OMEP10CA PO; -PRAV40 PO; +PRAV40TA2 PO; +XARE15TA PO; +XARE20TA PO
[2016-09-01 13:22] VITALS: BP 139/89; PULSE 54; RESP 16; TEMP 98; O2SAT 97
--- NOTE | 2016-09-01 13:46 | PD ---
HPI Chief Complaint: Musculoskeletal Complaint Time Seen by Provider: 13:27 Travel History International Travel<30 days: No Contact w/Intl Traveler<30days: No Traveled to known affect area: No History of Present Illness HPI Patient 55-year-old male presents for a chief complaint of a lesion on his right groin which she first noticed yesterday after working outside on the ladder on his roof. Patient states that it is somewhat painful. He has a recent history of a pulmonary embolus which apparently developed secondary to cardiac catheterization at an outside facility which occurred approximately a month ago. He states he did not require any stents that time. He's been on Xarelto since. For the lesion in his leg he called telemedicine explained to him that if he should develop any cough or shortness of breath that he should consider going to the emergency department. Patient states that he developed some cough and a hoarse voice this morning so decided to come in and be seen after [facility]. Patient states that a woman he lives with his been having similar symptoms of a cold. He states his been taking his Xarelto. He also states been having some mild extreme right-sided chest pain particularly when he coughs. No fevers no nausea vomiting.Patient denies any shortness of breath or hemoptysis. PFSH Past Medical History Hx Anticoagulant Therapy: Yes Arthritis: Yes Asthma: Yes Blood Disorders: No Bipolar Disorder: Yes Anxiety: Yes Depression: No Heart Rhythm Problems: Yes (bradycardia) Cancer: No Cardiac Catheterization: Yes (10/2015) Cardiovascular Problems: Yes High Cholesterol: No Chemotherapy: No Chest Pain: Yes Congestive Heart Failure: No COPD: No Cerebrovascular Accident: Yes Diabetes: Yes Patient Takes Glucophage: Yes Diminished Hearing: No Endocrine: No Gastrointestinal Disorders: Yes (REFLUX) GERD: Yes Genitourinary: No Headaches: Yes Hiatal Hernia: No Immune Disorder: No Insomnia: Yes Musculoskeletal: Yes (CHRONIC BODY ACHES) Neurologic: Yes (2 STROKES) Psychiatric: Yes (PTSD) Reproductive: No Respiratory: Yes Migraines: Yes Radiation Therapy: No Seizures: Yes (2013) Shingles: Yes Sleep Apnea: No Ulcer: No Influenza Vaccination: No ?: Not Past Surgical History Abdominal Surgery: No Cardiac Surgery: No Coronary Artery Bypass Graft: No Ear Surgery: No Endocrine Surgery: No Eye Surgery: No Genitourinary Surgery: No Gynecologic Surgery: No Neurologic Surgery: Yes Oral Surgery: No Thoracic Surgery: No Other Surgery: Yes (TUMOR IN HEAD, RIGHT SIDE) Social History Alcohol Use: No (quit 4 years ago) Tobacco Use: No (quit 4 years ago) Substance Use: No Allergies-Medications (Allergen,Severity, Reaction): Coded Allergies: Dairy (Verified Allergy, Severe, Diarrhea, 09/01/16) Ziprasidone (Verified Allergy, Severe, Swelling, 09/01/16) Reported Meds & Prescriptions Reported Meds & Active Scripts Active Xarelto (Rivaroxaban) 20 Mg Tab 20 Mg PO DAILY start 20 mg once a day after completing the 15 mg tablet once a day. Reported Pravastatin 40 Mg Tab 40 Mg PO DAILY Omeprazole 10 Mg Cap 10 Mg PO DAILY Metformin (Metformin HCl) 500 Mg Tab 500 Mg PO BID With a meal Flexeril (Cyclobenzaprine HCl) 5 Mg Tab 5 Mg PO HS Lorazepam 1 Mg Tab 1 Mg PO TID PRN Review of Systems Except as stated in HPI: all other systems reviewed are Neg Physical Exam Narrative GENERAL: Well-developed well-nourished no apparent distress SKIN: The right medial most thigh there is a small less than half centimeter diameter lesion which is minimally tender to palpation. His consistent with irritated skin tag versus skin irritation. Less likely is a very early abscess. HEAD: Atraumatic. Normocephalic. EYES: Pupils equal and round. No scleral icterus. No injection or drainage. ENT: No nasal bleeding or discharge. Mucous membranes pink and moist. NECK: Trachea midline. No JVD. CARDIOVASCULAR: Regular rate and rhythm. No murmur appreciated. 2+ bilateral equal pulses in all 4 extremities, femoral pulses are normal. No palpable femoral mass or hematoma.. RESPIRATORY: No accessory muscle use. Clear to auscultation. Breath sounds equal bilaterally. GASTROINTESTINAL: Abdomen soft, non-tender, nondistended. Hepatic and splenic margins not palpable. No hernia in the inguinal areas. MUSCULOSKELETAL: No obvious deformities. No clubbing. No cyanosis. No edema. NEUROLOGICAL: Awake and alert. No obvious cranial nerve deficits. Motor grossly within normal limits. Normal speech. PSYCHIATRIC: Appropriate mood and affect; insight and judgment normal. Data Data Last Documented VS Vital Signs Date Time Temp Pulse Resp B/P Pulse Ox O2 Delivery O2 Flow Rate FiO2 09/01/16 13:22 98.0 54 16 139/89 97 MDM Medical Decision Making Medical Screen Exam Complete: Yes Emergency Medical Condition: Yes Differential Diagnosis Skin tag, less likely is abscess, groin irritation, hernias excluded clinically , worsening pulmonary embolus was extremely unlikely, DVT is extremely unlikely , ACS is extremely unlikely. Narrative Course Patient was roomed in emergency department, he appears well in no apparent distress. This lesion he has on his thigh is highly inconsistent with any vascular abnormality. Discussed with patient I would recommend topical antibiotic ointment and expectant management. Patient asks if he can put a pin in the lesion It If It Starts to Get Larger but I Recommended That He Return to Emergency Department If That Happens. Recommended the patient follow up with his primary care physician by phone tomorrow. I discussed briefly that given his history of PE a worsening PE needs to be considered by think given his progression of symptoms this is highly unlikely. He is agreeable and I discussed with him return to ED criteria including shortness of breath hemoptysis fever or worsening chest pain and he is agreeable. Diagnosis Primary Impression: URI (upper respiratory infection) Additional Impression: Leg skin lesion, right Additional Instructions: Call your regular physician tomorrow, if you develop shortness of breath or start coughing up blood return to the emergency department immediately. Disposition: 01 DISCHARGE HOME Condition: Stable Karri Morales MD Sep 01, 2016 13:46
== END 2016-09-01 14:14 | disposition home or self-care (01) ==
LOC: PHED 13:17
DX: J06.9 Acute upper respiratory infection, unspecified (principal); L98.9 Disorder of the skin and subcutaneous tissue, unspecified; Z86.711 Personal history of pulmonary embolism; Z79.01 Long term (current) use of anticoagulants; R00.1 Bradycardia, unspecified; E11.9 Type 2 diabetes mellitus without complications; K21.9 Gastro-esophageal reflux disease without esophagitis; F43.10 Post-traumatic stress disorder, unspecified
CPT/HCPCS: 99281

== ENCOUNTER 2016-09-08 12:30 | Emergency (ER) | payer OTHER ==
[~2016-09-08] VITALS: Ht 180.3 cm; Wt 100.0 kg
[~2016-09-08 12:30] MED LIST changes: -XARE15TA PO
[2016-09-08 12:38] VITALS: BP 142/94; PULSE 60; RESP 27; TEMP 97.5; O2SAT 98
[2016-09-08] MEDS ORDERED: SODIUM CHLORIDE 0.9% FLUSH 10 ML FLUSH IVF PRN (12:45)
--- NOTE | 2016-09-08 12:49 | PD ---
HPI Chief Complaint: Respiratory Symptoms Time Seen by Provider: 12:48 Travel History International Travel<30 days: No Contact w/Intl Traveler<30days: No Traveled to known affect area: No History of Present Illness HPI Patient comes in complaining of continued cough ongoing for little over a week. Patient denies any fevers, nausea, vomiting, diarrhea, abdominal pain, loss change in bowel or bladder, or headaches. Patient states this is the same cough he was seen here for week ago but it has become worse. Patient's cough occasionally productive. Patient concerned that he coughs to the point he feels short of breath and lightheaded. Patient reports continued right-sided chest pain that is unchanged and is worse with coughing. Patient using an inhaler as well as TheraFlu [id number] some improvement for symptoms. Patient reports he's been taking his Xarelto as prescribed for his PE. PFSH Past Medical History Hx Anticoagulant Therapy: Yes Arthritis: Yes Asthma: Yes Blood Disorders: No Bipolar Disorder: Yes Anxiety: Yes Depression: No Heart Rhythm Problems: Yes (bradycardia) Cancer: No Cardiac Catheterization: Yes (10/2015) Cardiovascular Problems: Yes High Cholesterol: No Chemotherapy: No Chest Pain: Yes Congestive Heart Failure: No COPD: No Cerebrovascular Accident: Yes Diabetes: Yes Patient Takes Glucophage: Yes Diminished Hearing: No Endocrine: No Gastrointestinal Disorders: Yes (REFLUX) GERD: Yes Genitourinary: No Headaches: Yes Hiatal Hernia: No Immune Disorder: No Insomnia: Yes Musculoskeletal: Yes (CHRONIC BODY ACHES) Neurologic: Yes (2 STROKES) Psychiatric: Yes (PTSD) Reproductive: No Respiratory: Yes Migraines: Yes Radiation Therapy: No Seizures: Yes (2013) Shingles: Yes Sleep Apnea: No Ulcer: No Past Surgical History Abdominal Surgery: No Cardiac Surgery: No Coronary Artery Bypass Graft: No Ear Surgery: No Endocrine Surgery: No Eye Surgery: No Genitourinary Surgery: No Gynecologic Surgery: No Neurologic Surgery: Yes Oral Surgery: No Thoracic Surgery: No Other Surgery: Yes (TUMOR IN HEAD, RIGHT SIDE) Social History Alcohol Use: No (quit 4 years ago) Tobacco Use: No (quit 4 years ago) Substance Use: No Allergies-Medications (Allergen,Severity, Reaction): Coded Allergies: Dairy (Verified Allergy, Severe, Diarrhea, 09/01/16) Ziprasidone (Verified Allergy, Severe, Swelling, 09/01/16) Reported Meds & Prescriptions Reported Meds & Active Scripts Active Tessalon Perles (Benzonatate) 100 Mg Cap 200 Mg PO Q8HR PRN Zithromax Z-Perfecto (Azithromycin) 250 Mg Dspk 250 Mg PO DIRECTED 500 MG (2 tabs) day 1, then 1 tab days 2-5. Xarelto (Rivaroxaban) 20 Mg Tab 20 Mg PO DAILY start 20 mg once a day after completing the 15 mg tablet once a day. Reported Pravastatin 40 Mg Tab 40 Mg PO DAILY Omeprazole 10 Mg Cap 10 Mg PO DAILY Metformin (Metformin HCl) 500 Mg Tab 500 Mg PO BID With a meal Flexeril (Cyclobenzaprine HCl) 5 Mg Tab 5 Mg PO HS Lorazepam 1 Mg Tab 1 Mg PO TID PRN Review of Systems Except as stated in HPI: all other systems reviewed are Neg Physical Exam Narrative GENERAL: Well-developed, overly nourished, in no acute distress, and non-ill appearing. SKIN: Focused skin assessment warm and dry. HEAD: Atraumatic. Normocephalic. EYES: Pupils equal and round. EOMI. No scleral icterus. No injection or drainage. ENT: No nasal bleeding or discharge. Mucous membranes pink and moist. NECK: Trachea midline. Supple. No nuclear rigidity. CARDIOVASCULAR: Regular rate and rhythm. No murmur appreciated. RESPIRATORY: No accessory muscle use. No respiratory distress. Clear to auscultation. Breath sounds equal bilaterally. Slight dry cough noted on exam. MUSCULOSKELETAL: No obvious deformities. No clubbing. No cyanosis. No edema. Full range of motion. NEUROLOGICAL: Awake and alert. No obvious cranial nerve deficits. Motor grossly within normal limits. Normal speech. PSYCHIATRIC: Appropriate mood and affect; insight and judgment normal. Data Data Last Documented VS Vital Signs Date Time Temp Pulse Resp B/P Pulse Ox O2 Delivery O2 Flow Rate FiO2 09/08/16 14:32 86 20 142/76 98 09/08/16 12:38 97.5 Orders Complete Blood Count With Diff (09/08/16 12:45) Basic Metabolic Panel (Bmp) (09/08/16 12:45) Iv Access Insert/Monitor (09/08/16 12:45) Ecg Monitoring (09/08/16 12:45) Oximetry (09/08/16 12:45) Oxygen Administration (09/08/16 12:45) Sodium Chloride 0.9% Flush (Ns Flush) (09/08/16 12:45) Chest, Single Ap (09/08/16 ) Benzonatate (Tessalon) (09/08/16 13:00) Labs Laboratory Tests Test 09/08/16 12:55 White Blood Count 4.0 TH/MM3 Red Blood Count 4.95 MIL/MM3 Hemoglobin 15.9 GM/DL Hematocrit 46.2 % Mean Corpuscular Volume 93.4 FL Mean Corpuscular Hemoglobin 32.1 PG Mean Corpuscular Hemoglobin 34.4 % Concent Red Cell Distribution Width 12.9 % Platelet Count 101 TH/MM3 Mean Platelet Volume 8.9 FL Neutrophils (%) (Auto) 61.4 % Lymphocytes (%) (Auto) 22.5 % Monocytes (%) (Auto) 6.1 % Eosinophils (%) (Auto) 5.0 % Basophils (%) (Auto) 5.0 % Neutrophils # (Auto) 2.5 TH/MM3 Lymphocytes # (Auto) 0.9 TH/MM3 Monocytes # (Auto) 0.2 TH/MM3 Eosinophils # (Auto) 0.2 TH/MM3 Basophils # (Auto) 0.2 TH/MM3 CBC Comment DIFF FINAL Differential Comment Sodium Level 137 MEQ/L Potassium Level 4.0 MEQ/L Chloride Level 104 MEQ/L Carbon Dioxide Level 23.2 MEQ/L Anion Gap 10 MEQ/L Blood Urea Nitrogen 12 MG/DL Creatinine 1.15 MG/DL Estimat Glomerular Filtration 67 ML/MIN Rate Random Glucose 137 MG/DL Calcium Level 9.0 MG/DL MDM Medical Decision Making Medical Screen Exam Complete: Yes Emergency Medical Condition: Yes Medical Record Reviewed: Yes Interpretation(s) Chest x-ray read by the radiologist shows: No evidence of acute cardiopulmonary disease. Differential Diagnosis Pneumonia, upper respiratory syndrome, electrolyte abnormality, other Narrative Course Patients symptom complex is consistent with bronchitis. The patient is non-ill appearing and is in no respiratory distress and comfortable. The patient moves air well and oxygen saturations are normal. Chest x-ray revealed no evidence of obvious consolidation of infiltrate. There is no clinical evidence to suggest pneumonia at this time. Plan of care and management were discussed with the patient who agreed with plan. The patient was instructed to follow up with their physician and instructed to return if worsens, progressively worsening shortness of breath or difficulty breathing, persistent fever, chest pains or discomfort, inability to keep medication or fluids down with or without vomiting , or as needed. Patient in no obvious distress upon re-evaluation. All pertinent laboratory/ Radiology result(s) discussed with patient. Discussed patient with Dr. Alexandre prior discharge, who is in agreement with plan of care and disposition. Patient was asked if they wanted to speak to my attending, which the patient did not wish to do at this time. Any questions/concerns in reference to patient diagnosis/condition discussed and clarified prior to patient's discharge. Reinforced sheer importance of close follow up with patient 's primary physician or primary care clinic. Instructed patient to return to ED immediately, if symptoms return/worsen. Pt showed understanding of above instructions. Further instructions and recommendations were detailed in discharge paperwork. Pt ambulated without difficulty out of ED at discharge. Diagnosis Primary Impression: Bronchitis Patient Instructions: Acute Bronchitis (ED), General Instructions Additional Instructions: Follow-up with your primary care physician tomorrow for reevaluation. Take all medication as prescribed. Use your inhaler 2 puffs every 4 hours as needed for cough and/or shortness of breath. Return to the emergency department if symptoms get worse. Med/Other Pt SpecificInfo: Prescription(s) given Scripts Benzonatate (Tessalon Perles)100 Mg [id number] Mg PO Q8HR PRN (COUGH) #21 CAP Ref 0 Prov:Keke Alexandre MD 09/08/16 Azithromycin (Zithromax Z-Perfecto)250 Mg [id number] Mg PO DIRECTED #1 DSPK Ref 0 500 MG (2 tabs) day 1, then 1 tab days 2-5. Prov:Keke Alexandre MD 09/08/16 Disposition: 01 DISCHARGE HOME Condition: Stable Simeon Bloom Sep 08, 2016 12:48
[2016-09-08] MEDS ORDERED: BENZONATATE 100 MG CAP PO ONE (13:00)
--- NOTE | 2016-09-08 13:06 | RADRPT ---
EXAM DATE/TIME: 09/08/2016 13:01 [facility] COMPARISON: CT PULMONARY ANGIOGRAM, July 20, 2016, 22:17. CHEST SINGLE AP, July 20, 2016, 21:01. INDICATIONS : Cough MEDICAL HISTORY : Diabetes mellitus type II. Asthma SURGICAL HISTORY : Cardiac catherization. ENCOUNTER: Initial ACUITY: 1 month PAIN SCORE: 0/10 LOCATION: Bilateral chest FINDINGS: No infiltrate, effusion or pneumothorax. Heart size stable, within normal limits. Subcentimeter right upper lobe granuloma again noted. CONCLUSION: No evidence of acute cardiopulmonary disease. Ian Mendoza MD on September 08, 2016 at 13:03 Board Certified Radiologist. This report was verified electronically.
[2016-09-08 13:11] LABS: AUTOMATED NEUTROPHIL # 2.5 TH/MM3 (1.8-7.7); BASOPHIL # 0.2 TH/MM3 (0-0.2); EOSINOPHIL # 0.2 TH/MM3 (0-0.4); HEMATOCRIT 46.2 % (39.0-51.0); HEMO FLAGS DIFF FINAL; LYMPH % 22.5 % (9.0-44.0); LYMPHOCYTE # 0.9 TH/MM3 (1.0-4.8); MEAN CELL VOLUME 93.4 FL (80.0-100.0); MEAN CORPUSCULAR HEMOGLOBIN 32.1 PG (27.0-34.0); MEAN CORPUSCULAR HGB CONC 34.4 % (32.0-36.0); MONO % 6.1 % (0.0-8.0); NEUT % 61.4 % (16.0-70.0); PLATELET COUNT 101 TH/MM3 (150-450); RED BLOOD COUNT 4.95 MIL/MM3 (4.50-5.90); RED CELL DISTRIBUTION WIDTH 12.9 % (11.6-17.2)
[2016-09-08 13:21] LABS: BICARBONATE 23.2 MEQ/L (21.0-32.0)
[2016-09-08] MEDS ORDERED: ZITHTAB PO (14:05)
[2016-09-08] MEDS ORDERED: BENZ100 PO (14:05)
[2016-09-08 14:32] VITALS: BP 142/76
== END 2016-09-08 14:47 | disposition home or self-care (01) ==
LOC: NEPC 12:30
DX: J40 Bronchitis, not specified as acute or chronic (principal); J45.909 Unspecified asthma, uncomplicated; E11.9 Type 2 diabetes mellitus without complications; K21.9 Gastro-esophageal reflux disease without esophagitis; F43.10 Post-traumatic stress disorder, unspecified; R00.1 Bradycardia, unspecified
CPT/HCPCS: 71010; 80048; 85025; 99284

== ENCOUNTER 2017-02-10 13:17 | Emergency (ER) | payer OTHER ==
[~2017-02-10] VITALS: Ht 185.4 cm; Wt 113.4 kg
[~2017-02-10 13:17] MED LIST changes: +BENZ100 PO; +ZITHTAB PO
[2017-02-10 13:21] VITALS: BP 153/81; PULSE 63; RESP 15; TEMP 97.9; O2SAT 96
--- NOTE | 2017-02-10 13:40 | PD ---
HPI Chief Complaint: Abdominal Pain Time Seen by Provider: 13:27 Travel History International Travel<30 days: No Contact w/Intl Traveler<30days: No Traveled to known affect area: No History of Present Illness HPI This 56-year-old male is complaining of epigastric pain and pain in both flank areas. Says the pain started about an hour ago. He says it is quite severe. Started soon after eating some biscuits and gravy and also taken a fish oil tablet. He has a history of bilateral pulmonary embolus. He is on thyroxine but missed yesterday's dose. He has been diabetic in the past but recently has been having issues with hypoglycemia. He is not aware of having pain like this before. He is not aware of gallbladder disease. He is aware that he is splenic been enlarged in the past. He has had polyps removed from his stomach in the past. PFSH Past Medical History Hx Anticoagulant Therapy: Yes Arthritis: Yes Asthma: Yes Blood Disorders: No Bipolar Disorder: Yes Anxiety: Yes Depression: No Heart Rhythm Problems: Yes (bradycardia) Cancer: No Cardiac Catheterization: Yes (10/2015) Cardiovascular Problems: Yes High Cholesterol: No Chemotherapy: No Chest Pain: Yes Congestive Heart Failure: No COPD: No Cerebrovascular Accident: Yes Diabetes: Yes Diminished Hearing: No Endocrine: No Gastrointestinal Disorders: Yes (REFLUX) GERD: Yes Genitourinary: No Headaches: Yes Hiatal Hernia: No Immune Disorder: No Insomnia: Yes Musculoskeletal: Yes (CHRONIC BODY ACHES) Neurologic: Yes (2 STROKES) Psychiatric: Yes (PTSD) Reproductive: No Respiratory: Yes Migraines: Yes Radiation Therapy: No Seizures: Yes (2013) Shingles: Yes Sleep Apnea: No Ulcer: No Past Surgical History Abdominal Surgery: No Cardiac Surgery: No Coronary Artery Bypass Graft: No Ear Surgery: No Endocrine Surgery: No Eye Surgery: No Genitourinary Surgery: No Gynecologic Surgery: No Neurologic Surgery: Yes Oral Surgery: No Thoracic Surgery: No Other Surgery: Yes (TUMOR IN HEAD, RIGHT SIDE) Social History Alcohol Use: No (quit 4 years ago) Tobacco Use: No (quit 4 years ago) Substance Use: No Allergies-Medications (Allergen,Severity, Reaction): Coded Allergies: lactose (Unverified Allergy, Severe, Diarrhea, 02/10/17) ziprasidone (Unverified Allergy, Severe, Swelling, 02/10/17) Reported Meds & Prescriptions Reported Meds & Active Scripts Active Xarelto (Rivaroxaban) 20 Mg Tab 20 Mg PO DAILY start 20 mg once a day after completing the 15 mg tablet once a day. Reported Pravastatin 40 Mg Tab 40 Mg PO DAILY Flexeril (Cyclobenzaprine HCl) 5 Mg Tab 5 Mg PO HS Lorazepam 1 Mg Tab 1 Mg PO TID PRN Review of Systems General / Constitutional: No: Fever, Chills Eyes: No: Diploplia, Blurred Vision HENT: No: Headaches, Vertigo Cardiovascular: No: Chest Pain or Discomfort, Palpitations Respiratory: No: Cough, Shortness of Breath Gastrointestinal: Positive: Abdominal Pain Genitourinary: No: Urgency Musculoskeletal: No: Myalgias, Arthralgias Skin: No Rash, No Itching Neurologic: No: Weakness Physical Exam Narrative GENERAL: Well-developed male SKIN: Focused skin assessment warm/dry. HEAD: Atraumatic. Normocephalic. EYES: Pupils equal and round. No scleral icterus. No injection or drainage. ENT: No nasal bleeding or discharge. Mucous membranes pink and moist. NECK: Trachea midline. No JVD. CARDIOVASCULAR: Regular rate and rhythm. No murmur appreciated. RESPIRATORY: No accessory muscle use. Clear to auscultation. Breath sounds equal bilaterally. GASTROINTESTINAL: Abdomen soft, non-tender, nondistended. Hepatic and splenic margins not palpable. MUSCULOSKELETAL: No obvious deformities. No clubbing. No cyanosis. No edema. NEUROLOGICAL: Awake and alert. No obvious cranial nerve deficits. Motor grossly within normal limits. Normal speech. PSYCHIATRIC: Appropriate mood and affect; insight and judgment normal. Data Data Last Documented VS Vital Signs Date Time Temp Pulse Resp B/P (MAP) Pulse Ox O2 Delivery O2 Flow Rate FiO2 02/10/17 14:13 62 20 148/86 (106) 97 02/10/17 13:21 97.9 Orders Orders Complete Blood Count With Diff (02/10/17 13:33) Comprehensive Metabolic Panel (02/10/17 13:33) Lipase (02/10/17 13:33) Ua Includes Microscopic (02/10/17 13:33) Ct Abd/Pel W Iv Contrast(Rout) (02/10/17 13:33) Sodium Chlor 0.9% 1000 Ml Inj (Ns 1000 M (02/10/17 13:45) Hydromorphone Pf Inj (Dilaudid Pf Inj) (02/10/17 13:45) Ondansetron Inj (Zofran Inj) (02/10/17 13:45) Iohexol 350 Inj (Omnipaque 350 Inj) (02/10/17 15:00) Labs Laboratory Tests Test 02/10/17 13:30 White Blood Count 3.5 TH/MM3 Red Blood Count 4.86 MIL/MM3 Hemoglobin 15.4 GM/DL Hematocrit 45.4 % Mean Corpuscular Volume 93.3 FL Mean Corpuscular Hemoglobin 31.7 PG Mean Corpuscular Hemoglobin Concent 34.0 % Red Cell Distribution Width 12.2 % Platelet Count 100 TH/MM3 Mean Platelet Volume 8.6 FL Neutrophils (%) (Auto) 54.8 % Lymphocytes (%) (Auto) 28.0 % Monocytes (%) (Auto) 8.4 % Eosinophils (%) (Auto) 4.2 % Basophils (%) (Auto) 4.6 % Neutrophils # (Auto) 1.9 TH/MM3 Lymphocytes # (Auto) 1.0 TH/MM3 Monocytes # (Auto) 0.3 TH/MM3 Eosinophils # (Auto) 0.1 TH/MM3 Basophils # (Auto) 0.2 TH/MM3 CBC Comment AUTO DIFF Differential Comment AUTO DIFF CONFIRMED Platelet Estimate LOW Platelet Morphology Comment NORMAL Urine Collection Type VOIDED Urine Color YELLOW Urine Turbidity CLEAR Urine pH 6.5 Urine Specific [place] 1.014 Urine Protein NEG mg/dL Urine Glucose (UA) 100 mg/dL Urine Ketones NEG mg/dL Urine Occult Blood NEG Urine Nitrite NEG Urine Bilirubin NEG Urine Leukocyte Esterase NEG Urine WBC 0-2 /hpf Urine Squamous Epithelial Cells 0-2 /hpf Microscopic Urinalysis Comment Blood Urea Nitrogen 15 MG/DL Creatinine 1.30 MG/DL Random Glucose 193 MG/DL Total Protein 7.2 GM/DL Albumin 3.3 GM/DL Calcium Level 8.2 MG/DL Alkaline Phosphatase 51 U/L Aspartate Amino Transf (AST/SGOT) 51 U/L Alanine Aminotransferase (ALT/SGPT) 64 U/L Total Bilirubin 1.0 MG/DL Sodium Level 137 MEQ/L Potassium Level 4.2 MEQ/L Chloride Level 107 MEQ/L Carbon Dioxide Level 21.2 MEQ/L Anion Gap 9 MEQ/L Estimat Glomerular Filtration Rate 58 ML/MIN Lipase 158 U/L [facility] Medical Decision Making Medical Screen Exam Complete: Yes Emergency Medical Condition: Yes Medical Record Reviewed: Yes Differential Diagnosis Differential includes renal colic, cholelithiasis cholecystitis, gastritis Narrative Course Patient was given IV fluids and initial dose of Dilaudid. His hemoglobin is 15.4 with a white count of 3.5 and platelet count 100,000. Similar to usual values. His glucose is 193. Liver function tests are normal. Patient reports improvement in his pain. He scan is negative for gallstones and he thinks he has had ultrasound also for gallstones which was negative. He has had 2 other CTs of the abdomen and pelvis recently which were negative. Patient is stable for discharge I am going to recommend that he take medication for gastritis and stress and is to continue his rivaroxiban Diagnosis Primary Impression: Gastritis Scripts Oxycodone-Acetaminophen (Percocet) 7.5-325 mg Tab 1 TAB PO Q4H Y for PAIN, #14 TAB 0 Refills Prov: Alfred Xiong MD 02/10/17 Pantoprazole (Protonix) 40 Mg Tab 40 MG PO DAILY for Reflux, #30 TAB 0 Refills Prov: Alfred Xiong MD 02/10/17 Disposition: DISCHARGE HOME Condition: Stable Alfred Xiong MD Feb 10, 2017 13:40
[2017-02-10] MEDS ORDERED: SODIUM CHLOR 0.9% 1000 ML INJ 1,000 ML IV SCH (13:45)
[2017-02-10] MEDS ORDERED: HYDROmorphone HCL PF 1 MG/ML VIAL IV PUSH ONE (13:45)
[2017-02-10] MEDS ORDERED: ONDANSETRON HCL 4 MG/2 ML VIAL IV PUSH ONE (13:45)
[2017-02-10 14:10] LABS: AUTOMATED NEUTROPHIL # 1.9 TH/MM3 (1.8-7.7); BASOPHIL # 0.2 TH/MM3 (0-0.2); BASOPHIL % 4.6 % (0.0-2.0); BLOOD, URINE NEG (NEG); EOSINOPHIL # 0.1 TH/MM3 (0-0.4); EOSINOPHIL % 4.2 % (0.0-4.0); GLUCOSE,URINE 100 mg/dL (NEG); HEMATOCRIT 45.4 % (39.0-51.0); KETONE, URINE NEG (NEG); MEAN CELL VOLUME 93.3 FL (80.0-100.0); MEAN CORPUSCULAR HEMOGLOBIN 31.7 PG (27.0-34.0); MONO % 8.4 % (0.0-8.0); NEUT % 54.8 % (16.0-70.0); NITRITE,URINE NEG (NEG); PH, URINE 6.5 (5.0-8.5); PLATELET COUNT 100 TH/MM3 (150-450); RED BLOOD COUNT 4.86 MIL/MM3 (4.50-5.90); RED CELL DISTRIBUTION WIDTH 12.2 % (11.6-17.2); WHITE BLOOD COUNT 3.5 TH/MM3 (4.0-11.0)
[2017-02-10 14:13] VITALS: BP 148/86; PULSE 62; RESP 20; O2SAT 97
[2017-02-10 14:16] LABS: CHLORIDE 107 MEQ/L (98-107); HEMO FLAGS AUTO DIFF; POTASSIUM 4.2 MEQ/L (3.5-5.1); SODIUM (NA) 137 MEQ/L (136-145)
[2017-02-10 14:19] LABS: METHOD OF COLLECTION VOIDED; URINE COLOR YELLOW (YELLW/STRAW)
[2017-02-10 14:20] LABS: ANION GAP 9 MEQ/L (5-15); BICARBONATE 21.2 MEQ/L (21.0-32.0); SQUAMOUS EPITHELIAL CELL URINE 0-2 /hpf (0-5); WBC, URINE 0-2 /hpf (0-5)
[2017-02-10 14:21] LABS: BLOOD UREA NITROGEN 15 MG/DL (7-18)
[2017-02-10 14:23] LABS: ALT (GPT) 64 U/L (12-78); AST (GOT) 51 U/L (15-37); GLOMERULAR FILTRATION RATE 58 ML/MIN (>89)
[2017-02-10 14:26] LABS: ALKALINE PHOSPHATASE 51 U/L (45-117)
[2017-02-10 14:48] LABS: PLATELET ESTIMATE SMEAR LOW (NORMAL); PLATELET MORPHOLOGY NORMAL (NORMAL); SCAN/DIFF AUTO DIFF CONFIRMED
[2017-02-10] MEDS ORDERED: IOHEXOL 350 MG/ML 10 ML VIAL (for RAD DIAG) IVCONTRAST ONE (15:00)
--- NOTE | 2017-02-10 15:20 | RADRPT ---
EXAM DATE/TIME: 02/10/2017 14:54 [facility] COMPARISON: CT ABDOMEN & PELVIS W CONTRAST, September 26, 2014, 17:02. INDICATIONS : Epigastric pain radiaitng to bilateral flank area. IV CONTRAST: 95 cc Omnipaque 350 (iohexol) IV ORAL CONTRAST: No oral contrast ingested. RADIATION DOSE: 21.11 CTDIvol (mGy) MEDICAL HISTORY : Cerebrovascular disease. Gastroesophageal reflux disease. Hypertension.Diabetes. Pulmonary embolism. SURGICAL HISTORY : None. ENCOUNTER: Initial ACUITY: 1 day PAIN SCALE: 4/10 LOCATION: Bilateral flank TECHNIQUE: Volumetric scanning of the abdomen and pelvis was performed. Using automated exposure control and ad justment of the mA and/or kV according to patient size, radiation dose was kept as low as reasonably achievable to obtain optimal diagnostic quality images. DICOM format image data is available electro nically for review and comparison. FINDINGS: LOWER LUNGS: The visualized lower lungs are clear. LIVER: Homogeneous density without lesion. There is no dilation of the biliary tree. No calcified gallston es. SPLEEN: Normal size without lesion. PANCREAS: Within normal limits. KIDNEYS: Normal in size and shape. There is no mass, stone or hydronephrosis. ADRENAL GLANDS: Within normal limits. VASCULAR: There is no aortic aneurysm. BOWEL/MESENTERY: The stomach, small bowel, and colon demonstrate no acute abnormality. There is no free intraperitone al air or fluid. ABDOMINAL WALL: Within normal limits. RETROPERITONEUM: There is no lymphadenopathy. BLADDER: No wall thickening or mass. REPRODUCTIVE: Within normal limits. INGUINAL: There is no lymphadenopathy or hernia. MUSCULOSKELETAL: Moderate degenerative changes are seen in the lower lumbar spine. CONCLUSION: Negative for acute process. I do not see etiology for patient's abdominal pain. Hai Feliciano MD FACR on February 10, 2017 at 15:16 Board Certified Radiologist. This report was verified electronically.
[2017-02-10 15:31] VITALS: BP 142/80; PULSE 64; RESP 20; O2SAT 98
[2017-02-10] MEDS ORDERED: PROT40TA PO (15:33)
[2017-02-10] MEDS ORDERED: PERC7.5T13 PO (15:33)
== END 2017-02-10 15:46 | disposition home or self-care (01) ==
LOC: PHED 13:17
DX: K29.70 Gastritis, unspecified, without bleeding (principal); E11.9 Type 2 diabetes mellitus without complications; Z79.01 Long term (current) use of anticoagulants; Z86.711 Personal history of pulmonary embolism; Z87.39 Personal history of other diseases of the musculoskeletal system and connective tissue; Z87.09 Personal history of other diseases of the respiratory system; Z86.59 Personal history of other mental and behavioral disorders; Z86.79 Personal history of other diseases of the circulatory system; Z87.19 Personal history of other diseases of the digestive system; Z86.69 Personal history of other diseases of the nervous system and sense organs
CPT/HCPCS: 74177; 80053; 81001; 83690; 85025; 96361; 96374; 96375; 99285; J1170; J2405; J7030; Q9967

== ENCOUNTER 2017-03-02 19:50 | Inpatient (IN) | payer OTHER ==
[~2017-03-02] VITALS: Ht 182.9 cm; Wt 115.0 kg
[~2017-03-02 19:50] MED LIST changes: -BENZ100 PO; -METF500T PO; -OMEP10CA PO; +PERC7.5T13 PO; +PROT40TA PO; -ZITHTAB PO
[2017-03-02 20:08] VITALS: BP 175/93; PULSE 64; RESP 20; TEMP 98; O2SAT 96
--- NOTE | 2017-03-02 20:17 | PD ---
HPI Chief Complaint: Skin Problem Time Seen by Provider: 20:16 Travel History International Travel<30 days: No Contact w/Intl Traveler<30days: No Traveled to known affect area: No PFSH Past Medical History Hx Anticoagulant Therapy: Yes (Xeralto) Arthritis: Yes Asthma: Yes Blood Disorders: No Bipolar Disorder: Yes Anxiety: Yes Depression: No Heart Rhythm Problems: Yes (bradycardia) Cancer: No Cardiac Catheterization: Yes (10/2015 50 PERCENT BLOCKAGE) Cardiovascular Problems: Yes (HTN) High Cholesterol: Yes Chemotherapy: No Chest Pain: Yes Congestive Heart Failure: No COPD: No Cerebrovascular Accident: Yes (palpitation, stroke) Diabetes: Yes (hypoglycemia) Diminished Hearing: No Endocrine: No Gastrointestinal Disorders: Yes (REFLUX) GERD: Yes Genitourinary: No Headaches: Yes Hiatal Hernia: No Hypertension: Yes Immune Disorder: No Implanted Vascular Access Dvce: No Insomnia: Yes Musculoskeletal: Yes (CHRONIC BODY ACHES) Neurologic: Yes (2 STROKES) Psychiatric: Yes (PTSD) Reproductive: No Respiratory: Yes (PE, bronchitis, pneumonia) Migraines: Yes Radiation Therapy: No Seizures: Yes (2013) Shingles: Yes Sleep Apnea: No Ulcer: No Past Surgical History Abdominal Surgery: No Cardiac Surgery: No Coronary Artery Bypass Graft: No Ear Surgery: No Endocrine Surgery: No Eye Surgery: No Genitourinary Surgery: No Gynecologic Surgery: No Neurologic Surgery: Yes Oral Surgery: No Thoracic Surgery: No Other Surgery: Yes (TUMOR IN HEAD, RIGHT SIDE, PAROTID SURGERY) Social History Alcohol Use: No (quit 4 years ago) Tobacco Use: No (quit 4 years ago) Substance Use: No Allergies-Medications (Allergen,Severity, Reaction): Coded Allergies: lactose (Verified Allergy, Severe, Diarrhea, 03/02/17) ziprasidone (Verified Allergy, Severe, Swelling, 03/02/17) Reported Meds & Prescriptions Reported Meds & Active Scripts Active Percocet (Oxycodone-Acetaminophen) 7.5-325 mg Tab 1 Tab PO Q4H PRN Protonix (Pantoprazole Sodium) 40 Mg Tab 40 Mg PO DAILY Xarelto (Rivaroxaban) 20 Mg Tab 20 Mg PO DAILY start 20 mg once a day after completing the 15 mg tablet once a day. Reported Pravastatin 40 Mg Tab 40 Mg PO DAILY Flexeril (Cyclobenzaprine HCl) 5 Mg Tab 5 Mg PO HS Lorazepam 1 Mg Tab 1 Mg PO TID PRN Data Data Last Documented VS Vital Signs Date Time Temp Pulse Resp B/P (MAP) Pulse Ox O2 Delivery O2 Flow Rate FiO2 03/02/17 20:08 98.0 64 20 175/93 (120) 96 Kelli Thomas Mar 02, 2017 20:17
[2017-03-02] MEDS ORDERED: KETOROLAC TROMETHAMINE 30 MG/ML (IVP) VIAL IV PUSH ONE (20:45)
[2017-03-02] MEDS ORDERED: SODIUM CHLOR 0.9% 1000 ML INJ 1,000 ML IV SCH (20:45)
[2017-03-02] MEDS ORDERED: SODIUM CHLORIDE 0.9% FLUSH 10 ML FLUSH IVF PRN (20:45)
[2017-03-02] MEDS ORDERED: FAMOTIDINE 20 MG/2 ML VIAL IV PUSH ONE (20:45)
[2017-03-02] MEDS ORDERED: diphenhydrAMINE HCL 50 MG/ML VIAL IV PUSH ONE (20:45)
[2017-03-02] MEDS ORDERED: ONDANSETRON HCL 4 MG/2 ML VIAL IV PUSH ONE (20:45)
--- NOTE | 2017-03-02 20:54 | RADRPT ---
EXAM DATE/TIME: 03/02/2017 20:45 [facility] COMPARISON: CHEST SINGLE AP, September 08, 2016, 13:01. INDICATIONS : Shortness of breath. MEDICAL HISTORY : Diabetes mellitus type II. Asthma. SURGICAL HISTORY : Cardiac catheterization. ENCOUNTER: Initial ACUITY: 1 day PAIN SCORE: 0/10 LOCATION: Bilateral chest FINDINGS: A single view of the chest demonstrates the lungs to be symmetrically aerated without evidence of mas s, infiltrate or effusion. The cardiomediastinal contours are unremarkable. Osseous structures are intact. Unchanged subcentimeter granuloma of the right upper lobe. CONCLUSION: No evidence of acute cardiopulmonary disease. Ian Mendoza MD on March 02, 2017 at 20:51 Board Certified Radiologist. This report was verified electronically.
[2017-03-02 21:00] VITALS: BP_SYST 152; BP_SYST 155; BP_DIAS 84; BP_DIAS 85; O2SAT 98
--- NOTE | 2017-03-02 21:02 | PD ---
HPI Chief Complaint: Skin Problem Time Seen by Provider: 20:16 Travel History International Travel<30 days: No Contact w/Intl Traveler<30days: No Traveled to known affect area: No History of Present Illness HPI 56-year-old male presents to the emergency department by private transportation the care of her spouse for evaluation of left middle finger injury sustained when reportedly a puss caterpillar bit him on the distal finger palmar aspect. Patient does not identify any puncture wounds. Patient brought the caterpillar with him. Patient states he has been bitten in the past by a rattlesnake and this pain is worse. Patient rates the finger pain 10 over 10 in intensity. Patient states the pain radiated up his left arm into his chest across his chest into the right upper extremity and into the fingers of the right hand. Patient complains of feeling nauseated had brief episode of diaphoresis felt near syncopal has 4/10 chest pain and headache. Patient has had some GI upset but denies any vomiting or diarrhea. Patient has taken no medications prior to arrival to the emergency department. Patient has had no urticarial reaction. Patient denies any lip tongue or throat swelling. Patient has had no stridor or hoarseness. Patient's had no wheezing. Patient denies shortness of breath. Patient's concerned about his chest pain is reportedly has history of cardiac disease as well as hypertension dyslipidemia patient is unable to identify exacerbating or alleviating factors. PFSH Past Medical History Narrative Medical Xarelto therapy for pulmonary embolism (07/15) asthma arthritis dyslipidemia hypertension CVA diabetes CAD cardiac catheterization with single-vessel 50% blockage (early 2016 ) migraines seizure parotid gland surgery no tobacco use nursing notes reviewed Hx Anticoagulant Therapy: Yes (Xeralto) Arthritis: Yes Asthma: Yes Blood Disorders: No Bipolar Disorder: Yes Anxiety: Yes Depression: No Heart Rhythm Problems: Yes (bradycardia) Cancer: No Cardiac Catheterization: Yes (10/2015 50 PERCENT BLOCKAGE) Cardiovascular Problems: Yes (HTN) High Cholesterol: Yes Chemotherapy: No Chest Pain: Yes Congestive Heart Failure: No COPD: No Cerebrovascular Accident: Yes (palpitation, stroke) Diabetes: Yes (hypoglycemia) Patient Takes Glucophage: No Diminished Hearing: No Endocrine: No Gastrointestinal Disorders: Yes (REFLUX) GERD: Yes Genitourinary: No Headaches: Yes Hiatal Hernia: No Hypertension: Yes Immune Disorder: No Implanted Vascular Access Dvce: No Insomnia: Yes Musculoskeletal: Yes (CHRONIC BODY ACHES) Neurologic: Yes (2 STROKES) Psychiatric: Yes (PTSD) Reproductive: No Respiratory: Yes (PE, bronchitis, pneumonia) Migraines: Yes Radiation Therapy: No Seizures: Yes (2013) Shingles: Yes Sleep Apnea: No Ulcer: No Tetanus Vaccination: < 5 Years Past Surgical History Abdominal Surgery: No Cardiac Surgery: No Coronary Artery Bypass Graft: No Ear Surgery: No Endocrine Surgery: No Eye Surgery: No Genitourinary Surgery: No Gynecologic Surgery: No Neurologic Surgery: Yes Oral Surgery: No Thoracic Surgery: No Other Surgery: Yes (TUMOR IN HEAD, RIGHT SIDE, PAROTID SURGERY) Social History Alcohol Use: No (quit 4 years ago) Tobacco Use: No (quit 4 years ago) Substance Use: No Allergies-Medications (Allergen,Severity, Reaction): Coded Allergies: lactose (Verified Allergy, Severe, Diarrhea, 03/02/17) ziprasidone (Verified Allergy, Severe, Swelling, 03/02/17) Reported Meds & Prescriptions Reported Meds & Active Scripts Active Xarelto (Rivaroxaban) 20 Mg Tab 20 Mg PO DAILY start 20 mg once a day after completing the 15 mg tablet once a day. Reported Flexeril (Cyclobenzaprine HCl) 5 Mg Tab 5 Mg PO HS Lorazepam 1 Mg Tab 1 Mg PO TID PRN Review of Systems Except as stated in HPI: all other systems reviewed are Neg General / Constitutional: No: Fever, Chills HENT: No: Congestion Cardiovascular: Positive: Chest Pain or Discomfort Respiratory: No: Shortness of Breath, Hemoptysis, Pleuritic Pain Gastrointestinal: Positive: Nausea, No: Vomiting, Diarrhea, Abdominal Pain Genitourinary: No: Flank Pain Musculoskeletal: Positive: Myalgias, Arthralgias, Pain (attention left middle finger) Skin: Positive Rash (left little finger erythema) Neurologic: Positive: Dizziness, No: Weakness, Syncope, Focal Abnormalities, Coordination Problem Psychiatric: Positive: Anxiety Hematologic/Lymphatic: No: Easy Bruising Physical Exam Narrative GENERAL: Well-developed well-nourished female in no acute distress no respiratory distress; no stridor or hoarseness; GCS 15 SKIN: Warm and dry. No urticaria HEAD: Atraumatic. Normocephalic. EYES: Pupils equal and round. No scleral icterus. No injection or drainage. ENT: No nasal bleeding or discharge. Mucous membranes pink and moist. No lip tongue or throat angioedema airway is patent. NECK: Trachea midline. No JVD. CARDIOVASCULAR: Regular rate and rhythm. RESPIRATORY: No accessory muscle use. Clear to auscultation. Breath sounds equal bilaterally. No wheezing no rhonchi sounds are clear to auscultation. GASTROINTESTINAL: Abdomen soft, non-tender, nondistended. Hepatic and splenic margins not palpable. Soft nontender no guarding or rebound. MUSCULOSKELETAL: Extremities without clubbing, cyanosis, or edema. No obvious deformities. Attention left middle finger distal aspect area of erythema intact range of motion and sensation capillary refill brisk less than 2 seconds. NEUROLOGICAL: Awake and alert. No obvious cranial nerve deficits. Motor grossly within normal limits. Five out of 5 muscle strength in the arms and legs. Normal speech. PSYCHIATRIC: Appropriate mood and affect; insight and judgment normal. Data Data Last Documented VS Vital Signs Date Time Temp Pulse Resp B/P (MAP) Pulse Ox O2 Delivery O2 Flow Rate FiO2 03/02/17 22:08 75 18 153/75 (101) 98 Room Air 03/02/17 20:08 98.0 Orders Orders Electrocardiogram (03/02/17 20:31) Basic Metabolic Panel (Bmp) (03/02/17 20:31) Ckmb (Isoenzyme) Profile (03/02/17 20:31) Complete Blood Count With Diff (03/02/17 20:31) Magnesium (Mg) (03/02/17 20:31) Prothrombin Time / Inr (Pt) (03/02/17 20:31) Act Partial Throm Time (Ptt) (03/02/17 20:31) Troponin I (03/02/17 20:31) Chest, Single Ap (03/02/17 20:31) Ecg Monitoring (03/02/17 20:31) Bilateral Bp Monitoring (03/02/17 20:31) Iv Access Insert/Monitor (03/02/17 20:31) Oximetry (03/02/17 20:31) Oxygen Administration (03/02/17 20:31) Sodium Chloride 0.9% Flush (Ns Flush) (03/02/17 20:45) Diphenhydramine Inj (Benadryl Inj) (03/02/17 20:45) Famotidine Inj (Pepcid Inj) (03/02/17 20:45) Ketorolac Inj (Toradol Inj) (03/02/17 20:45) Ondansetron Inj (Zofran Inj) (03/02/17 20:45) Sodium Chlor 0.9% 1000 Ml Inj (Ns 1000 M (03/02/17 20:45) CKMB (03/02/17 20:49) CKMB% (03/02/17 20:49) Aspirin Chew (Aspirin Chew) (03/02/17 21:45) Nitroglycerin 2% Oint (Nitroglycerin 2% (03/02/17 21:45) Morphine Inj (Morphine Inj) (03/02/17 21:45) Aspirin Ec (Ecotrin Ec) (03/03/17 09:00) Pravastatin (Pravachol) (03/03/17 09:00) Metoprolol Tartrate (Lopressor) (03/03/17 09:00) Nitroglycerin 2% Oint (Nitroglycerin 2% (03/02/17 22:15) Admit To Inpatient (03/02/17 ) Vital Signs (Adult) Q4H (03/02/17 22:11) Activity Oob Ad Renee (03/02/17 22:11) Welder Experimental / Telemetry .CONTINUOUS (03/02/17 22:11) Intake + Output ARTIE.QSHIFT (03/02/17 22:11) Diet Heart Healthy (03/03/17 Breakfast) Sodium Chlor 0.9% 1000 Ml Inj (Ns 1000 M (03/02/17 22:11) Sodium Chloride 0.9% Flush (Ns Flush) (03/02/17 22:15) Sodium Chloride 0.9% Flush (Ns Flush) (03/03/17 09:00) Ondansetron Inj (Zofran Inj) (03/02/17 22:15) Comprehensive Metabolic Panel (03/03/17 09:00) Complete Blood Count With Diff (03/03/17 09:00) Troponin I (03/03/17 03:00) Troponin I (03/03/17 09:00) Pharmacologic Contraindication (03/02/17 22:11) Acetaminophen (Tylenol) (03/02/17 22:15) Acetamin-Hydrocod 325-5 Mg ([place] 5-325 (03/02/17 22:15) Morphine Inj (Morphine Inj) (03/02/17 22:15) Docusate Sodium-Senna (Marlee-Colace) (03/03/17 09:00) Magnesium Hydroxide Liq (Milk Of Magnesi (03/02/17 22:15) Sennosides (Senokot) (03/02/17 22:15) Bisacodyl Supp (Dulcolax Supp) (03/02/17 22:15) Lactulose Liq (Lactulose Liq) (03/02/17 22:15) Inpatient Certification (03/02/17 ) Cyclobenzaprine (Flexeril) (03/03/17 21:00) Lorazepam (Ativan) (03/02/17 22:15) Labs Laboratory Tests Test 03/02/17 20:49 White Blood Count 4.3 TH/MM3 Red Blood Count 4.75 MIL/MM3 Hemoglobin 15.2 GM/DL Hematocrit 44.8 % Mean Corpuscular Volume 94.3 FL Mean Corpuscular Hemoglobin 32.1 PG Mean Corpuscular Hemoglobin Concent 34.0 % Red Cell Distribution Width 12.8 % Platelet Count 101 TH/MM3 Mean Platelet Volume 8.7 FL Neutrophils (%) (Auto) 57.7 % Lymphocytes (%) (Auto) 28.1 % Monocytes (%) (Auto) 8.3 % Eosinophils (%) (Auto) 5.2 % Basophils (%) (Auto) 0.7 % Neutrophils # (Auto) 2.5 TH/MM3 Lymphocytes # (Auto) 1.2 TH/MM3 Monocytes # (Auto) 0.4 TH/MM3 Eosinophils # (Auto) 0.2 TH/MM3 Basophils # (Auto) 0.0 TH/MM3 CBC Comment DIFF FINAL Differential Comment Prothrombin Time 13.0 SEC Prothromb Time International Ratio 1.2 RATIO Activated Partial Thromboplast Time 28.5 SEC Blood Urea Nitrogen 17 MG/DL Creatinine 1.30 MG/DL Random Glucose 208 MG/DL Calcium Level 8.6 MG/DL Magnesium Level 2.2 MG/DL Sodium Level 136 MEQ/L Potassium Level 3.8 MEQ/L Chloride Level 105 MEQ/L Carbon Dioxide Level 23.6 MEQ/L Anion Gap 7 MEQ/L Estimat Glomerular Filtration Rate 58 ML/MIN Total Creatine Kinase 319 U/L Creatine Kinase MB 4.0 NG/ML Creatine Kinase MB % 1.3 % Troponin I 0.20 NG/ML MDM Medical Decision Making Medical Screen Exam Complete: Yes Emergency Medical Condition: Yes Medical Record Reviewed: Yes Interpretation(s) CBC & BMP Diagram 03/02/17 20:49 Calcium Level 8.6, Magnesium Level 2.2 Vital Signs Date Time Temp Pulse Resp B/P (MAP) Pulse Ox O2 Delivery O2 Flow Rate FiO2 03/02/17 20:08 98.0 64 20 175/93 (120) 96 Troponin I: 0.20, elevated; CK: 319, elevated MB: 4.0, elevated MB percent: 1.3 %, not elevated Differential Diagnosis Allergic reaction also to consider anaphylaxis angioedema chest pain atypical chest pain angina compartment syndrome tenosynovitis Narrative Course Patient placed on cardiac catheterization technologist and continuous pulse oximetry IV access obtained EKG performed shows sinus rhythm rate of 66 with left anterior fascicular block no acute ST elevation or injury pattern change or ectopy noted ; patient administered Pepcid 20 mg IV Benadryl 25 mg IV for allergic symptoms as well as Toradol 30 mg IV for complaint of headache and Zofran 4 mg IV for complaint of nausea. At 9:30 PM patient reassessed patient continues to complain of pain to the left middle finger and hand and to a lesser extent his forearm but denies any left upper arm pain chest pain right upper externally pain in her right hand pain. Patient states left little finger pain 8/10 in intensity. Patient ordered to be administered administered morphine 3 mg IV. Labs reviewed and identified to have a total CK of 319, elevated with a CK-MB of 4.0 elevated with a severe 1.3% MB percent not elevated however the troponin I is 0.20 which is elevated. Patient administered aspirin and Nitropaste 1 inch to the chest wall as patient denies any chest pain. Patient has artery taken his dose of Xarelto for the day. Patient will be admitted. Physician Communication Physician Communication call placed to [facility] tiffany VALDIVIA; discussed with [facility] for admission requests cardiology ed consult --discussed with Dr Mohamud --cic Diagnosis Primary Impression: Chest pain Additional Impressions: Toxic effect of venom of caterpillars, accidental (unintentional), initial encounter Elevated troponin I level Admitting Information Admitting Physician Requests: Admit Sivan Mcmillan MD Mar 02, 2017 21:02
[2017-03-02 21:06] LABS: AUTOMATED NEUTROPHIL # 2.5 TH/MM3 (1.8-7.7); BASOPHIL % 0.7 % (0.0-2.0); EOSINOPHIL # 0.2 TH/MM3 (0-0.4); EOSINOPHIL % 5.2 % (0.0-4.0); HEMATOCRIT 44.8 % (39.0-51.0); HEMO FLAGS DIFF FINAL; LYMPH % 28.1 % (9.0-44.0); LYMPHOCYTE # 1.2 TH/MM3 (1.0-4.8); MEAN CELL VOLUME 94.3 FL (80.0-100.0); MEAN CORPUSCULAR HEMOGLOBIN 32.1 PG (27.0-34.0); MONO % 8.3 % (0.0-8.0); NEUT % 57.7 % (16.0-70.0); PLATELET COUNT 101 TH/MM3 (150-450); RED BLOOD COUNT 4.75 MIL/MM3 (4.50-5.90); RED CELL DISTRIBUTION WIDTH 12.8 % (11.6-17.2); WHITE BLOOD COUNT 4.3 TH/MM3 (4.0-11.0)
[2017-03-02 21:07] LABS: POTASSIUM 3.8 MEQ/L (3.5-5.1)
[2017-03-02 21:10] LABS: BICARBONATE 23.6 MEQ/L (21.0-32.0); MAGNESIUM 2.2 MG/DL (1.5-2.5)
[2017-03-02 21:13] LABS: APTT (PATIENT) 28.5 SEC (24.3-30.1); INTERNATIONAL NORMALIZED RATIO 1.2 RATIO
[2017-03-02] MEDS ORDERED: ASPIRIN 81 MG CHEW TAB CHEW ONE (21:45)
[2017-03-02] MEDS ORDERED: NITROGLYCERIN 2% OINT 1 GM PACKET TOPICAL ONE (21:45)
[2017-03-02] MEDS ORDERED: MORPHINE SULFATE 4 MG/ML INJ IV PUSH ONE (21:45)
[2017-03-02 22:08] VITALS: BP 153/75; PULSE 75; RESP 18; O2SAT 98
[2017-03-02] MEDS ORDERED: ACETAMINOPHEN 325 MG TAB PO PRN (22:15)
[2017-03-02] MEDS ORDERED: BISACODYL 10 MG SUPP RECTAL PRN (22:15)
[2017-03-02] MEDS ORDERED: MORPHINE SULFATE 4 MG/ML INJ IV PUSH PRN (22:15)
[2017-03-02] MEDS ORDERED: MAGNESIUM HYDROXIDE SUSP 30 ML CUP PO PRN (22:15)
[2017-03-02] MEDS ORDERED: SODIUM CHLORIDE 0.9% FLUSH 10 ML FLUSH IV FLUSH PRN (22:15)
[2017-03-02] MEDS ORDERED: LACTULOSE SYRUP 20 GM/30 ML CUP PO PRN (22:15)
[2017-03-02] MEDS ORDERED: ONDANSETRON HCL 4 MG/2 ML VIAL IVP PRN (22:15)
[2017-03-02] MEDS ORDERED: LORazepam 1 MG TAB PO PRN (22:15)
[2017-03-02] MEDS ORDERED: SENNOSIDES 8.6 MG TAB PO PRN (22:15)
[2017-03-02] MEDS ORDERED: NITROGLYCERIN 2% OINT 1 GM PACKET TOPICAL PRN (22:15)
[2017-03-02] MEDS: SODIUM CHLOR 0.9% 1000 ML INJ 1,000 ML IV SCH (23:19)
[2017-03-02 23:23] VITALS: BP 150/74; PULSE 70; RESP 18; TEMP 98.2; O2SAT 98
[2017-03-03] VITALS (12 sets, daily range): BP systolic 119–150; BP diastolic 71–82; PULSE 52–69; RESP 18–20; TEMP 97.6–98.2; O2SAT 95–98
[2017-03-03] MEDS: SODIUM CHLOR 0.9% 1000 ML INJ 1,000 ML IV SCH (08:11)
[2017-03-03] MEDS ORDERED: DOCUSATE SODIUM 50 MG/SENNA 8.6 MG TAB PO SCH (09:00)
[2017-03-03] MEDS: ACETAMINOPHEN/HYDROcodone 325 MG/5 MG TAB PO PRN ×2 (09:00→13:15)
[2017-03-03] MEDS ORDERED: ASPIRIN EC 81 MG TABEC PO SCH (09:00)
[2017-03-03] MEDS ORDERED: PRAVASTATIN SOD 40 MG TAB PO SCH (09:00)
[2017-03-03] MEDS ORDERED: METOPROLOL TARTRATE 25 MG TAB PO SCH (09:00)
[2017-03-03] MEDS ORDERED: SODIUM CHLORIDE 0.9% FLUSH 10 ML FLUSH IV FLUSH SCH (09:00)
--- NOTE | 2017-03-03 09:14 | HHI.HP ---
[facility] Admission Diagnosis chest pain; catepillar poisoning; elevated troponin I Diagnoses: Travel History International Travel<30 Days: No Contact w/Intl Traveler <30 Da: No Traveled to Known Affected Are: No History of Present Illness 56-year-old male with past medical history significant for previous pulmonary embolism anticoagulated on Xarelto, anxiety, hypertension and hyperlipidemia presents to the emergency department after sustaining a caterpillar sting last night. The patient reports the Caterpillar was on the sink faucet and touched the third digit of his left hand which resulted in immediate pain and swelling of that finger. The finger became erythematous, swollen and the pain radiated up his left arm across his chest and down his right arm. He reports the chest pain started when he was in the car on his way to the emergency department. He denies any chest pressure and states the pain was radiating and similar to a flushing sensation. Denies diaphoresis/shortness of breath. Troponin in the emergency department found to be 0.20. EKG shows left anterior fascicular block without ST segment depressions or elevations. At the time of her visit, the patient's chest pain has resolved. He reports the pain in his left arm has also resolved. He continues to have erythema and swelling in the third digit of his left hand however this is improving. Review of Systems Denies fever or chills Denies blurry vision, otorrhea, rhinorrhea Denies sore throat and cough No chest pain, palpitations, shortness of breath No abdominal pain Denies constipation/diarrhea/nausea/vomiting Denies muscle pain/weakness No rashes Past Family Social History Past Medical History Bilateral PE on 07/21/16, currently anticoagulated on Xarelto Anxiety Hypertension Hyperlipidemia (patient not on statin secondary to adverse reaction) Past Surgical History Jaw tumor removal (benign) Cardiac catheterization in March 2016, no stents placed, 53% stenosis of unknown artery Reported Medications Reported Meds & Active Scripts Active Xarelto (Rivaroxaban) 20 Mg Tab 20 Mg PO DAILY start 20 mg once a day after completing the 15 mg tablet once a day. Reported Flexeril (Cyclobenzaprine HCl) 5 Mg Tab 5 Mg PO HS Lorazepam 1 Mg Tab 1 Mg PO TID PRN Allergies: Coded Allergies: lactose (Verified Allergy, Severe, Diarrhea, 03/02/17) ziprasidone (Verified Allergy, Severe, Swelling, 03/02/17) Family History Father suffered a CVA Social History Quit smoking 5 years ago, [id number] history of smoking. Denies alcohol, illicit drugs. Physical Exam Vital Signs Vital Signs Date Time Temp Pulse Resp B/P (MAP) Pulse Ox O2 Delivery O2 Flow Rate FiO2 03/03/17 06:00 52 03/03/17 05:00 58 03/03/17 04:00 56 03/03/17 03:00 64 03/03/17 03:00 97.8 67 18 125/75 (92) 95 03/03/17 01:12 03/03/17 01:11 98.2 65 18 150/80 (103) 98 Room Air 03/02/17 23:23 98.2 70 18 150/74 (99) 98 Room Air 03/02/17 22:08 75 18 153/75 (101) 98 Room Air 03/02/17 21:00 152/85 (107) 155/84 (107) 03/02/17 21:00 Nasal Cannula 03/02/17 21:00 98 Room Air 03/02/17 20:08 98.0 64 20 175/93 (120) 96 Physical Exam GENERAL: male lying down in bed SKIN: No rashes, ecchymoses or lesions. Cool and dry. HEAD: Atraumatic. Normocephalic. No temporal or scalp tenderness. EYES: Pupils equal round and reactive. Extraocular motions intact. No scleral icterus. No injection or drainage. ENT: Nose without bleeding, purulent drainage or septal hematoma. Throat without erythema, tonsillar hypertrophy or exudate. Uvula midline. Airway patent. NECK: Trachea midline. No JVD or lymphadenopathy. Supple, nontender, no meningeal signs. CARDIOVASCULAR: Regular rate and rhythm without murmurs, gallops, or rubs. RESPIRATORY: Clear to auscultation. Breath sounds equal bilaterally. No wheezes , rales, or rhonchi. GASTROINTESTINAL: Abdomen soft, non-tender, nondistended. No hepato-splenomegaly , or palpable masses. No guarding. MUSCULOSKELETAL: Extremities without clubbing, cyanosis, or edema. No joint tenderness, effusion, or edema noted. No calf tenderness. Swollen, erythematous third digit left hand. Neurovascularly intact. Capillary refill less than 2 seconds. Full range of motion. NEUROLOGICAL: Awake and alert. Cranial nerves II through XII intact. Motor and sensory grossly within normal limits. Normal speech. Laboratory Laboratory Tests Test 03/02/17 20:49 03/03/17 05:00 White Blood Count 4.3 Red Blood Count 4.75 Hemoglobin 15.2 Hematocrit 44.8 Mean Corpuscular Volume 94.3 Mean Corpuscular Hemoglobin 32.1 Mean Corpuscular Hemoglobin Concent 34.0 Red Cell Distribution Width 12.8 Platelet Count 101 Mean Platelet Volume 8.7 Neutrophils (%) (Auto) 57.7 Lymphocytes (%) (Auto) 28.1 Monocytes (%) (Auto) 8.3 Eosinophils (%) (Auto) 5.2 Basophils (%) (Auto) 0.7 Neutrophils # (Auto) 2.5 Lymphocytes # (Auto) 1.2 Monocytes # (Auto) 0.4 Eosinophils # (Auto) 0.2 Basophils # (Auto) 0.0 CBC Comment DIFF FINAL Differential Comment Prothrombin Time 13.0 Prothromb Time International Ratio 1.2 Activated Partial Thromboplast Time 28.5 Blood Urea Nitrogen 17 Creatinine 1.30 Random Glucose 208 Calcium Level 8.6 Magnesium Level 2.2 Sodium Level 136 Potassium Level 3.8 Chloride Level 105 Carbon Dioxide Level 23.6 Anion Gap 7 Estimat Glomerular Filtration Rate 58 Total Creatine Kinase 319 Creatine Kinase MB 4.0 Creatine Kinase MB % 1.3 Troponin I 0.20 0.16 Result Diagram: 03/02/17204803/02/172048 Caprini VTE Risk Assessment Caprini VTE Risk Assessment: Mod/High Risk (score >= 2) Caprini Risk Assessment Model Point Value = 1 Point Value = 2 Point Value = 3 Point Value = 5 Age 41-60 Minor surgery BMI > 25 kg/m2 Swollen legs Varicose veins or History of unexplained or recurrent spontaneous Oral contraceptives or hormone replacement Sepsis (< 1 month) Serious lung disease, including pneumonia (< 1 month) Abnormal pulmonary function Acute myocardial infarction Congestive heart failure (< 1 month) History of inflammatory bowel disease Medical patient at bed rest Age 61-74 Arthroscopic surgery Major open surgery (> 45 min) Laparoscopic surgery (> 45 min) Malignancy Confined to bed (> 72 hours) Immobilizing plaster cast Central venous access Age >= 75 History of VTE Family history of VTE Factor V Leiden Prothrombin [id number] Lupus anticoagulant Anticardiolipin antibodies Elevated serum homocysteine Heparin-induced thrombocytopenia Other congenital or acquired thrombophilia Stroke (< 1 month) Elective arthroplasty Hip, pelvis, or leg fracture Acute spinal cord injury (< 1 month) Prophylaxis Regimen Total Risk Factor Score Risk Level Prophylaxis Regimen 0-1 Low Early ambulation 2 Moderate Order ONE of the following: *Sequential Compression Device (SCD) *Heparin 5000 units SQ BID 3-4 Higher Order ONE of the following medications: *Heparin 5000 units SQ TID *Enoxaparin/Lovenox 40 mg SQ daily (WT < 150 kg, CrCl > 30 mL/min) *Enoxaparin/Lovenox 30 mg SQ daily (WT < 150 kg, CrCl > 10-29 mL/min) *Enoxaparin/Lovenox 30 mg SQ BID (WT < 150 kg, CrCl > 30 mL/min) AND/OR *Sequential Compression Device (SCD) 5 or more Highest Order ONE of the following medications: *Heparin 5000 units SQ TID (Preferred with Epidurals) *Enoxaparin/Lovenox 40 mg SQ daily (WT < 150 kg, CrCl > 30 mL/min) *Enoxaparin/Lovenox 30 mg SQ daily (WT < 150 kg, CrCl > 10-29 mL/min) *Enoxaparin/Lovenox 30 mg SQ BID (WT < 150 kg, CrCl > 30 mL/min) AND *Sequential Compression Device (SCD) Assessment and Plan Assessment and Plan 56-year-old male with past medical history significant for hypertension, hyperlipidemia and on Xarelto for bilateral PE presents with Caterpillar saying and chest pain with corresponding elevated troponin. 1. Elevated troponin Initial troponin 0.20, repeat 0.16 Chest pain resolved EKG significant for anterior fascicular block unchanged from previous, no ST segment elevations or depressions, reviewed by ri Troponin in June. Complete ACS rule out with serial troponins/EKGs 2. Caterpillar sting Symptomatic management Improving 3. Hypertension Continue home metoprolol 4. Hyperlipidemia Patient unable to take statins secondary to adverse reaction 5. History of bilateral PE Continue Xarelto FEN Heart healthy diet NS at 100 cc/hr Electrolytes: Monitor and replete prn Xarelto Discharge planning: If patient's cardiac enzymes and EKG remain stable and he does not have recurrence of CP, will dc to home likely today. Physician Certification 2 Midnight Certification Type: Admission for Inpatient Services Order for Inpatient Services The services are ordered in accordance with Medicare regulations or non- Medicare payer requirements, as applicable. In the case of services not specified as inpatient-only, they are appropriately provided as inpatient services in accordance with the 2-midnight benchmark. Estimated LOS (days): 2 2 days is the estimated time the patient will need to remain in the hospital, assuming treatment plan goals are met and no additional complications. Post-Hospital Plan: Home Renetta More MD Mar 03, 2017 09:14
[2017-03-03 11:19] LABS: AUTOMATED NEUTROPHIL # 3.4 TH/MM3 (1.8-7.7); BASOPHIL % 0.5 % (0.0-2.0); EOSINOPHIL # 0.2 TH/MM3 (0-0.4); EOSINOPHIL % 3.2 % (0.0-4.0); HEMATOCRIT 40.9 % (39.0-51.0); LYMPHOCYTE # 0.8 TH/MM3 (1.0-4.8); MEAN CELL VOLUME 94.7 FL (80.0-100.0); MEAN CORPUSCULAR HEMOGLOBIN 33.4 PG (27.0-34.0); MEAN CORPUSCULAR HGB CONC 35.3 % (32.0-36.0); MONO % 8.7 % (0.0-8.0); NEUT % 70.6 % (16.0-70.0); PLATELET COUNT 87 TH/MM3 (150-450); RED BLOOD COUNT 4.32 MIL/MM3 (4.50-5.90); RED CELL DISTRIBUTION WIDTH 13.2 % (11.6-17.2); WHITE BLOOD COUNT 4.9 TH/MM3 (4.0-11.0)
[2017-03-03 11:23] LABS: HEMO FLAGS AUTO DIFF
[2017-03-03 11:52] LABS: ANION GAP 7 MEQ/L (5-15); BICARBONATE 25.3 MEQ/L (21.0-32.0); BLOOD UREA NITROGEN 13 MG/DL (7-18); CHLORIDE 105 MEQ/L (98-107); GLOMERULAR FILTRATION RATE 67 ML/MIN (>89); SODIUM (NA) 137 MEQ/L (136-145)
[2017-03-03 11:54] LABS: ALT (GPT) 44 U/L (12-78); AST (GOT) 36 U/L (15-37)
[2017-03-03 11:57] LABS: ALKALINE PHOSPHATASE 48 U/L (45-117); TOTAL BILIRUBIN ADULT 0.8 MG/DL (0.2-1.0)
[2017-03-03 12:23] LABS: PLATELET ESTIMATE SMEAR LOW (NORMAL); PLATELET MORPHOLOGY NORMAL (NORMAL); SCAN/DIFF AUTO DIFF CONFIRMED
--- NOTE | 2017-03-03 14:07 | HHI.DCPOC ---
Discharge Care Plan Goals to Promote Your Health * To prevent worsening of your condition and complications follow all discharge instructions * To maintain your health at the optimal level take all medications as prescribed Directions to Meet Your Goals Take your medications as prescribed Follow your dietary instruction Follow activity as directed Keep your appointments as scheduled Take your immunizations and boosters as scheduled If your symptoms worsen call your PCP, if no PCP go to Urgent Care Center or Emergency Room Smoking is Dangerous to Your Health. Avoid second hand smoke Call the 24-hour hour crisis hotline for domestic abuse at Renetta More MD Mar 03, 2017 14:07
--- NOTE | 2017-03-03 19:30 | EKG ---
Date Performed: 03/02/2017 Time Performed: 20:42:29 PTAGE: 56 years EKG: Sinus rhythm LEFT ANTERIOR FASCICULAR BLOCK \SPT ABNORMAL ECG PREVIOUS TRACING : 07/20/2016 20.24 DOCTOR: Gabriella Mcdaniel Interpretating Date/Time 03/03/2017 19:29:31
[2017-03-03] MEDS ORDERED: CYCLOBENZAPRINE HCL 10 MG TAB PO SCH (21:00)
[2017-03-04] MEDS ORDERED: RIVAROXABAN 20 MG TAB PO SCH (21:00)
== END 2017-03-03 14:07 | disposition home or self-care (01) | DRG 918 ==
LOC: PHED 19:50 → PHEDA 22:18 → HCPC 03-03 01:50
PROVIDERS: ADMIT Family Medicine; ATTEND Family Medicine
DX: T63.431A Toxic effect of venom of caterpillars, accidental (unintentional), initial encounter (principal); I10 Essential (primary) hypertension; E78.5 Hyperlipidemia, unspecified; R07.9 Chest pain, unspecified; R74.8 Abnormal levels of other serum enzymes; Y92.9 Unspecified place or not applicable; Z79.01 Long term (current) use of anticoagulants; Z86.711 Personal history of pulmonary embolism; J45.909 Unspecified asthma, uncomplicated; I25.10 Atherosclerotic heart disease of native coronary artery without angina pectoris; M19.90 Unspecified osteoarthritis, unspecified site; Z86.73 Personal history of transient ischemic attack (TIA), and cerebral infarction without residual deficits; K21.9 Gastro-esophageal reflux disease without esophagitis; E11.9 Type 2 diabetes mellitus without complications; F31.9 Bipolar disorder, unspecified; F43.10 Post-traumatic stress disorder, unspecified; Z87.891 Personal history of nicotine dependence
CPT/HCPCS: 71010; 80048; 80053; 82550; 82552; 83735; 84484; 85025; 85610; 85730; 93005; 96361; 96374; 96375; J1200; J1885; J2270; J2405; J7030

== ENCOUNTER 2017-05-18 15:24 | Emergency (ER) | payer OTHER ==
[~2017-05-18] VITALS: Ht 185.4 cm; Wt 113.0 kg
[~2017-05-18 15:24] MED LIST changes: -PERC7.5T13 PO; -PRAV40TA2 PO; -PROT40TA PO
[2017-05-18 15:27] VITALS: BP 165/92; PULSE 71; RESP 16; TEMP 98; O2SAT 94
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
[2017-05-18] MEDS ORDERED: BYST5TAB2 PO (15:59)
[2017-05-18] MEDS ORDERED: IBUPROFEN 400 MG TAB PO ONE (16:15)
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
[2017-05-18] MEDS ORDERED: IBUP1TAB5 PO (17:10)
== END 2017-05-18 17:34 | disposition home or self-care (01) ==
LOC: PHEFT 15:24
DX: S16.1XXA Strain of muscle, fascia and tendon at neck level, initial encounter (principal); S46.911A Strain of unspecified muscle, fascia and tendon at shoulder and upper arm level, right arm, initial encounter; R51 Headache; J45.909 Unspecified asthma, uncomplicated; F31.9 Bipolar disorder, unspecified; I10 Essential (primary) hypertension; E11.9 Type 2 diabetes mellitus without complications; Y04.2XXA Assault by strike against or bumped into by another person, initial encounter; Y92.22 Religious institution as the place of occurrence of the external cause
CPT/HCPCS: 70450; 72125; 73030; 99283

== ENCOUNTER 2017-06-01 16:13 | Observation (INO) | payer OTHER ==
[~2017-06-01] VITALS: Ht 182.9 cm; Wt 111.4 kg
[~2017-06-01 16:13] MED LIST changes: +BYST5TAB2 PO; +IBUP1TAB5 PO
[2017-06-01 16:24] VITALS: BP 172/99; PULSE 52; RESP 16; TEMP 98.2; O2SAT 97
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
[2017-06-01] MEDS ORDERED: MORPHINE SULFATE 4 MG/ML INJ IV PUSH ONE (17:15)
[2017-06-01] MEDS ORDERED: SODIUM CHLORIDE 0.9% FLUSH 10 ML FLUSH IVF PRN (17:15)
[2017-06-01 17:42] VITALS: O2SAT 96
[2017-06-01 17:49] LABS: CHLORIDE 104 MEQ/L (98-107); SODIUM (NA) 137 MEQ/L (136-145)
[2017-06-01 17:53] LABS: ALBUMIN 3.7 GM/DL (3.4-5.0); BICARBONATE 24.9 MEQ/L (21.0-32.0); CALCIUM 8.6 MG/DL (8.5-10.1); GLUCOSE,RANDOM 114 MG/DL (74-106)
[2017-06-01 17:54] LABS: BLOOD UREA NITROGEN 13 MG/DL (7-18)
[2017-06-01 17:55] LABS: INTERNATIONAL NORMALIZED RATIO 1.2 RATIO; PROTHROMBIN TIME - PATIENT 11.9 SEC (9.8-11.6)
[2017-06-01 17:56] LABS: ALT (GPT) 47 U/L (12-78); AST (GOT) 37 U/L (15-37); GLOMERULAR FILTRATION RATE 58 ML/MIN (>89)
[2017-06-01 17:58] LABS: TOTAL BILIRUBIN ADULT 0.4 MG/DL (0.2-1.0)
[2017-06-01 17:59] LABS: ALKALINE PHOSPHATASE 59 U/L (45-117)
[2017-06-01 18:01] LABS: TROPONIN I 0.13 NG/ML (0.02-0.05)
[2017-06-01] MEDS ORDERED: METO25TA3 PO (18:16)
[2017-06-01] MEDS ORDERED: ASPIRIN 81 MG CHEW TAB PO ONE (18:45)
[2017-06-01] MEDS ORDERED: NITROGLYCERIN 2% OINT 1 GM PACKET TOP ONE (18:45)
[2017-06-01 18:56] LABS: HEMATOCRIT 48.7 % (39.0-51.0); HEMOGLOBIN 16.5 GM/DL (13.0-17.0); MEAN CELL VOLUME 93.1 FL (80.0-100.0); MEAN CORPUSCULAR HEMOGLOBIN 31.5 PG (27.0-34.0); MEAN CORPUSCULAR HGB CONC 33.9 % (32.0-36.0); MEAN PLATELET VOLUME 8.5 FL (7.0-11.0); PLATELET COUNT 106 TH/MM3 (150-450); RED BLOOD COUNT 5.23 MIL/MM3 (4.50-5.90); RED CELL DISTRIBUTION WIDTH 12.5 % (11.6-17.2); WHITE BLOOD COUNT 4.5 TH/MM3 (4.0-11.0)
[2017-06-01] MEDS ORDERED: ENOXAPARIN SODIUM 80 MG/0.8 ML SYRINGE SQ ONE (19:00)
[2017-06-01] MEDS ORDERED: IOHEXOL 350 MG/ML 10 ML VIAL (for RAD DIAG) IVCONTRAST ONE (19:06)
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
[2017-06-01 19:20] VITALS: BP 150/87; PULSE 78; RESP 18; O2SAT 99
[2017-06-01 19:27] LABS: BANDS 1 % (0-6); LYMPHOCYTES 40 % (9-44); MONOCYTES 7 % (0-8); NEUTROPHIL # MANUAL DIFF 2.3 TH/MM3 (1.8-7.7); POLYS (SEG NEUTROPHILS) 49 % (16-70)
[2017-06-01] MEDS ORDERED: NALOXONE HCL 0.4 MG/ML AMP IV PUSH PRN (21:00)
[2017-06-01] MEDS: SODIUM CHLORIDE 0.9% FLUSH 10 ML FLUSH IV FLUSH SCH (21:00)
[2017-06-01] MEDS ORDERED: SODIUM CHLORIDE 0.9% FLUSH 10 ML FLUSH IV FLUSH PRN (21:00)
--- NOTE | 2017-06-01 21:02 | PD ---
Physical Exam Narrative Patient's identity by Dr. Hare, patient is pending remainder of clinical workup including CT scan and repeat troponin/EKG. Patient has a history of having family familial clotting disorder, has had multiple PEs himself, as well as having history of myocarditis and having a recent catheterization showing a 50% LAD lesion, who recently stopped taking Xarelto for a planned elective surgical procedure of left ingrown toenail removal, and right upper premolar probable root canal versus extraction, who notes having similar chest pain shortness of breath and squeezing feeling across his chest as presentation for prior chest pain syndrome associated with pulmonary emboli and/or unstable angina and/or myocarditis. Patient CT of the chest reveals no current pulmonary emboli, but does have significant coronary calcifications and moderate on the scalp, patient's repeat troponin is stable at 0.13. Patient's original EKG showed atrial bigeminy otherwise nonischemic, and now patient has converted to normal sinus rhythm at 96 bpm nonischemic. Patient's active chest pain at presentation has now abated, patient is comfortable. Care plan developed with patient, considering patient's recent cessation of Xarelto, a return of his chest pain syndrome which she has not had while taking Xarelto, and significant past medical history, patient to be admitted to hospitalist service for observation and cardiac evaluation. Case discussed with Jodi nurse practitioner covering hospitalist service, admitted to Dr. Ibrahim's service Data Data Last Documented VS Vital Signs Date Time Temp Pulse Resp B/P (MAP) Pulse Ox O2 Delivery O2 Flow Rate FiO2 06/01/17 17:42 96 06/01/17 16:24 98.2 52 16 172/99 (123) Orders Orders Electrocardiogram (06/01/17 17:11) B-Type Natriuretic Peptide (06/01/17 17:11) Ckmb (Isoenzyme) Profile (06/01/17 17:11) Complete Blood Count With Diff (06/01/17 17:11) Comprehensive Metabolic Panel (06/01/17 17:11) Prothrombin Time / Inr (Pt) (06/01/17 17:11) Act Partial Throm Time (Ptt) (06/01/17 17:11) Troponin I (06/01/17 17:11) Lipase (06/01/17 17:11) Ecg Monitoring (06/01/17 17:11) Iv Access Insert/Monitor (06/01/17 17:11) Oximetry (06/01/17 17:11) Oxygen Administration (06/01/17 17:11) Morphine Inj (Morphine Inj) (06/01/17 17:15) Sodium Chloride 0.9% Flush (Ns Flush) (06/01/17 17:15) Ct Pulmonary Angiogram (06/01/17 17:11) CKMB (06/01/17 17:27) CKMB% (06/01/17 17:27) Aspirin Chew (Aspirin Chew) (06/01/17 18:45) Nitroglycerin 2% Oint (Nitroglycerin 2% (06/01/17 18:45) Enoxaparin Inj (Lovenox Inj) (06/01/17 19:00) Iohexol 350 Inj (Omnipaque 350 Inj) (06/01/17 19:06) Troponin I (06/01/17 19:52) Electrocardiogram (06/01/17 ) Admit Order (Ed Use Only) (06/01/17 20:56) Labs Laboratory Tests Test 06/01/17 17:27 06/01/17 18:37 06/01/17 20:01 Prothrombin Time 11.9 SEC Prothromb Time International Ratio 1.2 RATIO Activated Partial Thromboplast Time 25.8 SEC Blood Urea Nitrogen 13 MG/DL Creatinine 1.30 MG/DL Random Glucose 114 MG/DL Total Protein 8.0 GM/DL Albumin 3.7 GM/DL Calcium Level 8.6 MG/DL Alkaline Phosphatase 59 U/L Aspartate Amino Transf (AST/SGOT) 37 U/L Alanine Aminotransferase (ALT/SGPT) 47 U/L Total Bilirubin 0.4 MG/DL Sodium Level 137 MEQ/L Potassium Level 4.2 MEQ/L Chloride Level 104 MEQ/L Carbon Dioxide Level 24.9 MEQ/L Anion Gap 8 MEQ/L Estimat Glomerular Filtration Rate 58 ML/MIN Total Creatine Kinase 222 U/L Creatine Kinase MB 2.8 NG/ML Troponin I 0.13 NG/ML 0.13 NG/ML B-Type Natriuretic Peptide 26 PG/ML Lipase 157 U/L White Blood Count 4.5 TH/MM3 Red Blood Count 5.23 MIL/MM3 Hemoglobin 16.5 GM/DL Hematocrit 48.7 % Mean Corpuscular Volume 93.1 FL Mean Corpuscular Hemoglobin 31.5 PG Mean Corpuscular Hemoglobin Concent 33.9 % Red Cell Distribution Width 12.5 % Platelet Count 106 TH/MM3 Mean Platelet Volume 8.5 FL CBC Comment AUTO DIFF Differential Total Cells Counted 100 Neutrophils % (Manual) 49 % Band Neutrophils % 1 % Lymphocytes % 40 % Monocytes % 7 % Eosinophils % 3 % Neutrophils # (Manual) 2.3 TH/MM3 Differential Comment FINAL DIFF MANUAL Platelet Estimate LOW Platelet Morphology Comment NORMAL Red Cell Morphology Comment NORMAL MDM Medical Record Reviewed: Yes Supervised Visit with HILDA: Yes Differential Diagnosis Chest pain, atypical chest pain, myocarditis, pulmonary emboli, acute myocardial infarction, unstable angina, pericarditis Narrative Course See narrative Diagnosis Primary Impression: NSTEMI (non-ST elevated myocardial infarction) Additional Impression: Chest pain Qualified Codes: R07.9 - Chest pain, unspecified Admitting Information Admitting Physician Requests: Observation Condition: Stable Layo Kolb MD Jun 01, 2017 21:02
[2017-06-01 22:56] VITALS: PULSE 72
[2017-06-01] MEDS ORDERED: CYCLOBENZAPRINE HCL 10 MG TAB PO ONE (23:00)
[2017-06-01] MEDS ORDERED: LORazepam 1 MG TAB PO ONE (23:00)
[2017-06-02] VITALS: BP 150/89; PULSE 70; RESP 18; TEMP 98; O2SAT 95
[2017-06-02 00:24] VITALS: PULSE 60
[2017-06-02 04:00] VITALS: BP 128/71; PULSE 75; RESP 16; TEMP 98.6; O2SAT 96
[2017-06-02 06:39] LABS: CALCIUM 8.3 MG/DL (8.5-10.1)
[2017-06-02 06:40] LABS: BICARBONATE 26.1 MEQ/L (21.0-32.0)
[2017-06-02 06:41] LABS: BASOPHIL % 1.1 % (0.0-2.0); EOSINOPHIL # 0.1 TH/MM3 (0-0.4); EOSINOPHIL % 2.3 % (0.0-4.0); HEMATOCRIT 45.9 % (39.0-51.0); HEMOGLOBIN 15.3 GM/DL (13.0-17.0); LYMPH % 18.4 % (9.0-44.0); LYMPHOCYTE # 0.8 TH/MM3 (1.0-4.8); MEAN CELL VOLUME 94.2 FL (80.0-100.0); MEAN CORPUSCULAR HEMOGLOBIN 31.4 PG (27.0-34.0); MEAN CORPUSCULAR HGB CONC 33.4 % (32.0-36.0); MEAN PLATELET VOLUME 8.9 FL (7.0-11.0); MONO % 6.5 % (0.0-8.0); MONOCYTE # 0.3 TH/MM3 (0-0.9); NEUT % 71.7 % (16.0-70.0); PLATELET COUNT 97 TH/MM3 (150-450); RED BLOOD COUNT 4.87 MIL/MM3 (4.50-5.90); RED CELL DISTRIBUTION WIDTH 12.2 % (11.6-17.2); WHITE BLOOD COUNT 4.3 TH/MM3 (4.0-11.0)
[2017-06-02 06:43] LABS: CREATININE 1.2 MG/DL (0.60-1.30)
[2017-06-02 08:00] VITALS: BP 117/68; PULSE 65; PULSE 66; RESP 18; TEMP 96.7; O2SAT 95
[2017-06-02] MEDS: SODIUM CHLORIDE 0.9% FLUSH 10 ML FLUSH IV FLUSH SCH (09:00)
[2017-06-02] MEDS ORDERED: LORazepam 1 MG TAB PO PRN (10:45)
[2017-06-02] MEDS ORDERED: METOPROLOL TARTRATE 25 MG TAB PO SCH (11:00)
[2017-06-02] MEDS ORDERED: PILL SPLITTER OTHER PRN (11:00)
[2017-06-02 12:00] VITALS: BP 144/86; PULSE 52; RESP 16; TEMP 97; O2SAT 96
--- NOTE | 2017-06-02 12:57 | HHI.HP ---
[facility] Admission Diagnosis Chest Pain Diagnoses: (1) Chest pain Diagnosis: Principal (2) Cough Diagnosis: Principal Travel History International Travel<30 Days: No Contact w/Intl Traveler <30 Da: No Traveled to Known Affected Are: No History of Present Illness 56 year-old male with known history of hypertension, untreated hyperlipidemia secondary to medication intolerance, history of pulmonary emboli off anticoagulation awaiting surgical procedures, history of myocardial infarction, possible diabetes who presented to hospital because of chest discomfort. Patient states that he is driving home yesterday and started developing a nonproductive cough. He is at a stoplight and coughed really hard and he had a sudden pain in his groin that radiated up into his chest. Ever since then he was experiencing pain in his chest every time his heartbeat. He states originally he was 10/10 on a pain scale which remained constant. The patient came to emergency department as of the pain he is experiencing and after nitroglycerin and the pain went down to a 4/10 on a pain scale. The pains was unresolved and continued to heart despite medications. He states the pain finally went away sometime in the middle and night when he was sleeping. He does indicate that he was having a rather persistent cough where he could not catch his breath. He did have associated symptoms of nausea, shortness of breath, lightheadedness, diaphoresis. Patient does have history of bilateral pulmonary emboli which was diagnosed approximately one year ago. He has been on Xarelto and that has been held over the last 5 days because he is preparing for elective dentist surgery as well as toenail surgery. Pulmonary angiogram was performed in the emergency department and did not indicate any pulmonary emboli. Upon review of ER documentation is indicated that patient had recent cardiac catheterization with abnormalities in the LAD of 50%. However patient indicates that he has not had cardiac catheterization in over a year, this was done at [facility] by one of the cardiology groups in that area. He does not know the name of the cro. Laboratory studies on May did indicate a elevated troponin which upon review of his records, patient does carry a chronic troponin elevation which is actually improved this visit as compared to previous studies. ER physician recommended patient be observed for chest pain Review of Systems Constitutional: COMPLAINS OF: Diaphoretic episodes, Dizziness Respiratory: COMPLAINS OF: Cough, Shortness of breath Cardiovascular: COMPLAINS OF: Chest pain Gastrointestinal: COMPLAINS OF: Nausea Except as stated in HPI: all other systems reviewed are Neg Past Family Social History Past Medical History Hypertension Hyperlipidemia History of myocardial infarction Diabetes History of pulmonary emboli Coronary artery disease Past Surgical History Cardiac catheterization Right jaw surgery with removal Reported Medications Reported Meds & Active Scripts Active Ibuprofen 400 Mg Tab 400 Mg PO Q6H PRN Reported Metoprolol Tartrate 25 Mg Tab 12.5 Mg PO BID Flexeril (Cyclobenzaprine HCl) 5 Mg Tab 5 Mg PO HS Lorazepam 1 Mg Tab 1 Mg PO TID PRN Allergies: Coded Allergies: lactose (Verified Allergy, Severe, Diarrhea, 06/01/17) ziprasidone (Verified Allergy, Severe, Swelling, 06/01/17) Family History Family history reviewed, states that father at age 66 from myocardial infarction. Because grandmother had a stroke. And family history of clotting disorder Social History Patient quit smoking in 2012, prior to that he smoked one pack a cigarettes a day since he was 32 years old. Denies any alcohol or illicit drugs Physical Exam Vital Signs Vital Signs Date Time Temp Pulse Resp B/P (MAP) Pulse Ox O2 Delivery O2 Flow Rate FiO2 06/02/17 12:00 97.0 52 16 144/86 (105) 96 06/02/17 08:00 65 06/02/17 08:00 96.7 66 18 117/68 (84) 95 06/02/17 04:00 98.6 75 16 128/71 (90) 96 06/02/17 00:24 60 06/02/17 00:00 98.0 70 18 150/89 (109) 95 06/01/17 22:56 72 06/01/17 19:20 99 Room Air 06/01/17 19:20 78 18 150/87 (108) 99 Room Air 06/01/17 17:42 96 06/01/17 16:24 98.2 52 16 172/99 (123) 97 Physical Exam GENERAL: Well-developed, well-nourished, in no acute distress. alert and orientated HEENT: Head is normocephalic without any lesions or masses noted. Facial features are symmetric. Eyes: Pupils equal round reactive to light. Extraocular muscles are intact. Conjunctivae were clear. Oropharyngeal: Pharynx without any erythema edema. Tongue is midline without deviation. Buccal mucosa is moist without any masses or lesions NECK: Supple without any masses. Trachea midline no deviation. No JVD, no bruits are appreciated CARDIAC: Regular rhythm, regular rate. S1/S2 are heard. No murmurs gallops or rubs. LUNGS: Clear to auscultation bilaterally. No wheeze, rhonchi or rales. No use of accessory muscles on inspiration or expiration. ABDOMEN: Soft, nontender. Nondistended. Bowel sounds heard in all 4 quadrants. No organomegaly or masses. Negative rebound, negative guarding EXTREMITIES: No edema, pulses are equal bilaterally. No cyanosis or clubbing NEUROLOGY: Mood and affect appear appropriate. Cranial nerves II through XII grossly intact. Muscle strength 5/5 in upper and lower extremities bilaterally. Deep tendon reflexes are 2+ in upper and lower extremities bilaterally. Laboratory Laboratory Tests Test 06/01/17 17:27 06/01/17 18:37 06/01/17 20:01 06/02/17 00:00 Prothrombin Time 11.9 Prothromb Time International Ratio 1.2 Activated Partial Thromboplast Time 25.8 Blood Urea Nitrogen 13 Creatinine 1.30 Random Glucose 114 Total Protein 8.0 Albumin 3.7 Calcium Level 8.6 Alkaline Phosphatase 59 Aspartate Amino Transf (AST/SGOT) 37 Alanine Aminotransferase (ALT/SGPT) 47 Total Bilirubin 0.4 Sodium Level 137 Potassium Level 4.2 Chloride Level 104 Carbon Dioxide Level 24.9 Anion Gap 8 Estimat Glomerular Filtration Rate 58 Total Creatine Kinase 222 Creatine Kinase MB 2.8 Troponin I 0.13 0.13 0.13 B-Type Natriuretic Peptide 26 Lipase 157 White Blood Count 4.5 Red Blood Count 5.23 Hemoglobin 16.5 Hematocrit 48.7 Mean Corpuscular Volume 93.1 Mean Corpuscular Hemoglobin 31.5 Mean Corpuscular Hemoglobin Concent 33.9 Red Cell Distribution Width 12.5 Platelet Count 106 Mean Platelet Volume 8.5 CBC Comment AUTO DIFF Differential Total Cells Counted 100 Neutrophils % (Manual) 49 Band Neutrophils % 1 Lymphocytes % 40 Monocytes % 7 Eosinophils % 3 Neutrophils # (Manual) 2.3 Differential Comment FINAL DIFF MANUAL Platelet Estimate LOW Platelet Morphology Comment NORMAL Red Cell Morphology Comment NORMAL Test 06/02/17 05:47 White Blood Count 4.3 Red Blood Count 4.87 Hemoglobin 15.3 Hematocrit 45.9 Mean Corpuscular Volume 94.2 Mean Corpuscular Hemoglobin 31.4 Mean Corpuscular Hemoglobin Concent 33.4 Red Cell Distribution Width 12.2 Platelet Count 97 Mean Platelet Volume 8.9 Neutrophils (%) (Auto) 71.7 Lymphocytes (%) (Auto) 18.4 Monocytes (%) (Auto) 6.5 Eosinophils (%) (Auto) 2.3 Basophils (%) (Auto) 1.1 Neutrophils # (Auto) 3.0 Lymphocytes # (Auto) 0.8 Monocytes # (Auto) 0.3 Eosinophils # (Auto) 0.1 Basophils # (Auto) 0.0 CBC Comment AUTO DIFF Differential Comment AUTO DIFF CONFIRMED Platelet Estimate LOW Platelet Morphology Comment NORMAL Red Cell Morphology Comment NORMAL Blood Urea Nitrogen 14 Creatinine 1.20 Random Glucose 156 Calcium Level 8.3 Sodium Level 137 Potassium Level 4.0 Chloride Level 103 Carbon Dioxide Level 26.1 Anion Gap 8 Estimat Glomerular Filtration Rate 63 Result Diagram: 06/02/17 0547 06/02/17 [address] Angiography 06/01/17 1711 Signed Impressions: Service Date/Time: Thursday, June 01, 2017 18:50 - CONCLUSION: 1. Negative for pulmonary embolus.Dependent atelectasis in the lungs. Moderate coronary calcifications. Sahil Mohamud MD Capjessicai VTE Risk Assessment Caprini VTE Risk Assessment: Mod/High Risk (score >= 2) Caprini Risk Assessment Model Point Value = 1 Point Value = 2 Point Value = 3 Point Value = 5 Age 41-60 Minor surgery BMI > 25 kg/m2 Swollen legs Varicose veins or History of unexplained or recurrent spontaneous Oral contraceptives or hormone replacement Sepsis (< 1 month) Serious lung disease, including pneumonia (< 1 month) Abnormal pulmonary function Acute myocardial infarction Congestive heart failure (< 1 month) History of inflammatory bowel disease Medical patient at bed rest Age 61-74 Arthroscopic surgery Major open surgery (> 45 min) Laparoscopic surgery (> 45 min) Malignancy Confined to bed (> 72 hours) Immobilizing plaster cast Central venous access Age >= 75 History of VTE Family history of VTE Factor V Leiden Prothrombin [id number] Lupus anticoagulant Anticardiolipin antibodies Elevated serum homocysteine Heparin-induced thrombocytopenia Other congenital or acquired thrombophilia Stroke (< 1 month) Elective arthroplasty Hip, pelvis, or leg fracture Acute spinal cord injury (< 1 month) Prophylaxis Regimen Total Risk Factor Score Risk Level Prophylaxis Regimen 0-1 Low Early ambulation 2 Moderate Order ONE of the following: *Sequential Compression Device (SCD) *Heparin 5000 units SQ BID 3-4 Higher Order ONE of the following medications: *Heparin 5000 units SQ TID *Enoxaparin/Lovenox 40 mg SQ daily (WT < 150 kg, CrCl > 30 mL/min) *Enoxaparin/Lovenox 30 mg SQ daily (WT < 150 kg, CrCl > 10-29 mL/min) *Enoxaparin/Lovenox 30 mg SQ BID (WT < 150 kg, CrCl > 30 mL/min) AND/OR *Sequential Compression Device (SCD) 5 or more Highest Order ONE of the following medications: *Heparin 5000 units SQ TID (Preferred with Epidurals) *Enoxaparin/Lovenox 40 mg SQ daily (WT < 150 kg, CrCl > 30 mL/min) *Enoxaparin/Lovenox 30 mg SQ daily (WT < 150 kg, CrCl > 10-29 mL/min) *Enoxaparin/Lovenox 30 mg SQ BID (WT < 150 kg, CrCl > 30 mL/min) AND *Sequential Compression Device (SCD) Assessment and Plan Assessment and Plan Chest pain with chronically elevated troponin, chest pain resolved Patient with increased risk factors include age, hypertension, hyperlipidemia , diabetes, history of myocardial infarctions, coronary disease, history tobacco use, family history of heart disease Serial cardiac enzymes do show a chronically flat troponin without any significant elevations to indicate acute injury EKGs do show sinus rhythm with frequent supraventricular premature complexes in bigeminy pattern. No ST elevation or T-wave changes. Myocardial perfusion study was performed and was negative for any stress- induced ischemia. Low risk Patient was given aspirin and nitroglycerin in the ER, continue beta tavo , nitroglycerin as needed monitor telemetry Hypertension, hyperlipidemia, history of recurrent infarction, coronary disease continue home medications patient intolerant to statins History bilateral pulmonary emboli Pulmonary angiogram does not indicate any pulmonary emboli at this time Xarelto has been on hold so patient can have dental procedure and toenail surgery DVT prevention sequential compression devices Discharge disposition Discharge home in stable condition Activity: Ad veronica. Diet: Healthy heart diet Medications per medication reconciliation Follow-up with primary medical doctor in one week Problem Qualifiers (1) Chest pain: Qualified Codes: R07.9 - Chest pain, unspecified David Lynn Jun 02, 2017 12:57
--- NOTE | 2017-06-02 15:36 | RADRPT ---
EXAM DATE/TIME: 06/02/2017 13:31 [place] COMPARISON: MYOCARDIAL PERF PHARM SPECT, GATED W/EF, October 04, 2014, 9:42. INDICATIONS : Substernal chest pain. Angina. DOSE: 35 mCi Tc99m Myoview at stress. 11 mCi Tc99m Myoview at rest. 0.4 mg Lexiscan STRESS SYMPTOMS: Headache, stomach pain and numbness. EJECTION FRACTION: 50% MEDICAL HISTORY : Myocardial infarction. Diabetes mellitus type 2. Hypercholesterolemia. hypertension. Stroke. SURGICAL HISTORY : Left knee. ENCOUNTER: Initial ACUITY: 2 days PAIN SCALE: 5/10 LOCATION: Substernal chest TECHNIQUE: The patient underwent pharmacologic stress with infusion of prescribed dose. Continuous ECG tracing was monitored during stress. Gated SPECT imaging was performed after stress and conventional SPECT i maging was performed at rest. The examination was performed on a SPECT/CT scanner, both attenuation and non-corrected datasets were reviewed. FINDINGS: DISTRIBUTION: The maximum perfused segment at stress is in the the lateral and inferior wall. PERFUSION STUDY: The pattern of perfusion at stress is better than rest GATED STUDY: There is intact wall motion and thickening without hypokinetic or dyskinetic segments. CONCLUSION: Negative for stress-induced ischemia RISK CATEGORY: Low (<1% Annual Mortality Rate) Hai Feliciano MD FACR on June 02, 2017 at 15:33 Board Certified Radiologist. This report was verified electronically.
--- NOTE | 2017-06-02 15:40 | HHI.DCPOC ---
Discharge Care Plan Diagnosis: (1) Chest pain Goals to Promote Your Health * To prevent worsening of your condition and complications * To maintain your health at the optimal level Directions to Meet Your Goals Take your medications as prescribed Follow your dietary instruction Follow activity as directed Keep your appointments as scheduled Take your immunizations and boosters as scheduled If your symptoms worsen call your PCP, if no PCP go to Urgent Care Center or Emergency Room Smoking is Dangerous to Your Health. Avoid second hand smoke Call the 24-hour hour crisis hotline for domestic abuse at David Lynn Jun 02, 2017 15:40
[2017-06-02 16:00] VITALS: BP 174/97; PULSE 66; RESP 18; TEMP 97.3; O2SAT 96
[2017-06-02] MEDS ORDERED: REGADENOSON INJ 0.4 MG/5 ML SYR IV ONE (20:58)
--- NOTE | 2017-06-03 16:06 | TR ---
Date Performed: 06/02/2017 Time Performed: 14:32:10 DOCTOR: Maria T Bangura DRUG LIST: CLINICAL HISTORY: REASON FOR TEST: Chest pain REASON FOR ENDING: OBSERVATION: CONCLUSION: Lexiscan stress test was performed under standard four minute protocol. Radionuclid e was injected one minute prior to ending the test. No electrocardiographic abormalities were present to suggest ischemia. Nuclear imaging and interpretation are pending. COMMENTS:
--- NOTE | 2017-06-05 13:47 | EKG ---
Date Performed: 06/01/2017 Time Performed: 20:01:34 PTAGE: 56 years EKG: Sinus rhythm MARKED LEFT AXIS DEVIATION SEPTAL MYOCARDIAL INFARCTION ABNORMAL ECG PREVIOUS TRACING : 06/01/2017 16.50 Compared to prior tracing, PACs are no longer noted. DOCTOR: Russell Mckenna Interpretating Date/Time 06/05/2017 13:46:29
--- NOTE | 2017-06-05 13:47 | EKG ---
Date Performed: 06/01/2017 Time Performed: 16:50:58 PTAGE: 56 years EKG: Sinus rhythm WITH FREQUENT SUPRAVENTRICULAR PREMATURE COMPLEXES IN A BIGEMINAL PATTERN MARKED LEFT AXIS DEVIATION SEPTAL MYOCARDIAL INFARCTION ABNORMAL ECG PREVIOUS TRACING : 06/01/2017 16.49 Compared to prior tracing, frequent PACs are now present. DOCTOR: Russell Mckenna Interpretating Date/Time 06/05/2017 13:46:09
== END 2017-06-02 17:48 | disposition home or self-care (01) ==
LOC: PHED 16:13 → PHEDA 20:57 → PH3A 22:32
PROVIDERS: ADMIT Hospitalist; ATTEND Hospitalist
DX: R07.89 Other chest pain (principal); I10 Essential (primary) hypertension; E11.9 Type 2 diabetes mellitus without complications; E78.5 Hyperlipidemia, unspecified; F31.9 Bipolar disorder, unspecified; F43.10 Post-traumatic stress disorder, unspecified; F40.240 Claustrophobia; I25.2 Old myocardial infarction; J98.11 Atelectasis; J45.909 Unspecified asthma, uncomplicated; K21.9 Gastro-esophageal reflux disease without esophagitis; Z79.01 Long term (current) use of anticoagulants; Z82.49 Family history of ischemic heart disease and other diseases of the circulatory system; Z86.711 Personal history of pulmonary embolism; Z86.73 Personal history of transient ischemic attack (TIA), and cerebral infarction without residual deficits; Z87.891 Personal history of nicotine dependence; Z79.84 Long term (current) use of oral hypoglycemic drugs
CPT/HCPCS: 71275; 78452; 80048; 80053; 82550; 82552; 83690; 83880; 84484; 85007; 85025; 85027; 85610; 85730; 93005; 93017; 96374; 96376; A9502; G0378; J1650; J2270; J2785; Q9967